=== PATIENT | male | born 1940 | race Caucasian/White ===

== ENCOUNTER 2016-08-10 12:13 | Outpatient (CLI) | payer MEDICARE, OTHER | END 2016-08-10 12:14 | disposition home or self-care (01) | DX: M79.1 Myalgia (principal); R05 Cough ==

== ENCOUNTER 2017-01-23 21:17 | Observation (INO) | payer MEDICARE, OTHER ==
--- NOTE | 2017-01-23 21:39 | ED Physician Documentation ---
PD HPI CHEST PAIN - Stated complaint Stated Complaint: HIGH PULSE RATE/CHEST PRESSURE - Chief complaint Chief Complaint: Cardiac - History obtained from History obtained from: Patient - History of Present Illness Timing - onset: Enter time (01:00), Last night Timing - onset during: Sleep Timing - details: Intermittant Pain level max: 2 Pain level now: 0 Quality: Pressure Location: Other (no radiation) Improved by: Nothing Worsened by: Other (no exacerbating factors) Associated symptoms: Shortness of air Similar symptoms before: No diagnosis Recently seen: Not recently seen - Additional information Additional information: c/o mild chest pressure, intermittent since AM yesterday. mild dyspnea on exertion but no palpitations. because of the BRYSON, patient decided to use BP cuff tonight and found his pulse rate was 140, which concerned him enough to come to ED Review of Systems Constitutional: reports: Reviewed and negative Eyes: reports: Reviewed and negative Ears: reports: Reviewed and negative Nose: reports: Reviewed and negative Throat: reports: Reviewed and negative Cardiac: reports: Chest pain / pressure. denies: Palpitations, Pedal edema Respiratory: reports: Dyspnea (on exertion) GI: reports: Nausea. denies: Abdominal Pain, Vomiting Skin: reports: Reviewed and negative Musculoskeletal: reports: Reviewed and negative Neurologic: reports: Reviewed and negative PD PAST MEDICAL HISTORY - Past Medical History Past Medical History: Yes Cardiovascular: Hypertension, High cholesterol, Coronary artery disease, [place] - Past Surgical History Past Surgical History: Yes Cardiovascular: Coronary stent (2011) - Present Medications Home Medications: Ambulatory Orders Medication Instructions Recorded Confirmed Aspirin 81 mg PO DAILY 01/24/17 01/24/17 Finasteride 5 mg PO DAILY 01/24/17 01/24/17 Lisinopril [Zestril] 5 mg PO DAILY 01/24/17 01/24/17 Metoprolol Tartrate [Lopressor] 50 mg PO BID #60 tablet 01/24/17 Rivaroxaban [Xarelto] 20 mg PO DAILY #30 tablet 01/24/17 Simvastatin 40 mg PO DAILY PM 01/24/17 01/24/17 Tamsulosin [Flomax] 0.4 mg PO DAILY 01/24/17 01/24/17 - Allergies Allergies/Adverse Reactions: Allergies Allergy/AdvReac Type Severity Reaction Status Date / Time No Known Drug Allergies Allergy Verified 01/23/17 21:29 - Living Situation Living Situation: reports: With spouse/s.o. Living Arrangement: reports: At home - Social History Does the pt smoke?: No PD ED PE NORMAL - Vitals Vital signs reviewed: Yes - General General: Alert and oriented X 3, No acute distress, Well developed/nourished - HEENT HEENT: Moist mucous membranes - Neck Neck: Supple, no meningeal sign - Cardiac Cardiac: No murmur - Respiratory Respiratory: No respiratory distress, Clear bilaterally - Abdomen Abdomen: Soft, Non tender - Derm Derm: Normal color, Warm and dry - Extremities Extremities: No edema - Neuro Neuro: Alert and oriented X 3 PD ED PE EXPANDED - Cardiac Cardiac: Tachy Results - Vitals Vitals: Oxygen O2 Source Room air - Labs Labs: Laboratory Tests 01/23/17 01/23/17 01/23/17 21:38 21:38 21:38 WBC 9.7 RBC 4.86 Hgb 15.1 Hct 42.9 MCV 88.4 MCH 31.0 MCHC 35.1 RDW 13.1 Plt Count 213 MPV 7.6 Neut # 5.6 Lymph # 1.6 Hamilton # 2.4 H Eos # 0.1 Baso # 0.0 Absolute Nucleated RBC 0.01 Band Neuts % (Manual) Not Reportable Nucleated RBC % 0.1 Differential Comment MANUAL=AUTO DIFF Platelet Estimate NORMAL (130-450,000) Platelet Morphology NORMAL APPEARANCE RBC Morph Micro Appear NORMAL APPEARANCE Sodium 140 Potassium 3.9 Chloride 104 Carbon Dioxide 27 Anion Gap 9.0 BUN 20 Creatinine 1.1 Estimated GFR (MDRD) 65 L Glucose 100 Calcium 9.5 Troponin I < 0.04 - Rads (name of study) chest xray Radiology: Prelim report reviewed, See rad report PD MEDICAL DECISION MAKING - ED course Complexity details: reviewed results, re-evaluated patient, considered differential, d/w patient ED course: initial EKG interpreted by computer as junctional tachycardia. It is likely atrial flutter with 2:1 block: on initial evaluation, I noted a single skipped ventricular beat on the monitor while I performed cardiac massage, and flutter waves were apparent. unfortunately, I could not get the equipment to print out the strip demonstrating this pause. good rate control with cardizem IV low dose used due to 90s SBP, but atrial fibrillation on monitor and second EKG which persisted during remainder of ED stay. Patient does not feel palpitations, so no clear time of onset to consider electrocardioversion. Departure - Departure Disposition: ED Place in Observation Clinical Impression: Atrial fibrillation Condition: Stable Discharge Date/Time: 01/24/17 01:25
[2017-01-23] MEDS ORDERED: diltiaZEM INJ 5 MG/ML VIAL IVP STA (22:18)
[2017-01-23 22:25] LABS: BASOPHILS % (AUTO) 0.4 %; EOSINOPHILS # (AUTO) 0.1 10^3/uL (0.0-0.7); HCT - HEMATOCRIT 42.9 % (42.0-52.0); HGB - HEMOGLOBIN 15.1 g/dL (14.0-18.0); LYMPHOCYTES # (AUTO) 1.6 10^3/uL (1.5-3.5); LYMPHOCYTES % (AUTO) 16.1 %; MEAN CORPUSCULAR HGB CONC 35.1 g/dL (32.0-36.0); MEAN CORPUSCULAR VOLUME 88.4 fL (80.0-94.0); MEAN PLATELET VOLUME 7.6 fL (7.4-11.4); MONOCYTES # (AUTO) 2.4 10^3/uL (0.0-1.0); MONOCYTES % (AUTO) 24.9 %; NEUTROPHILS # (AUTO) 5.6 10^3/uL (1.5-6.6); NEUTROPHILS % (AUTO) 57.6 %; NUCLEATED RED BLOOD CELLS AUTO 0.1 /100WBC; RED BLOOD COUNT 4.86 10^6/uL (4.70-6.10); RED CELL DISTRIBUTION WIDTH 13.1 % (12.0-15.0); UNCORRECTED WHITE BLOOD COUNT 9.7 x10^3/uL; WHITE BLOOD COUNT 9.7 x10^3/uL (4.8-10.8)
[2017-01-23] MEDS ORDERED: SODIUM CHLORIDE 0.9% 500 ML IV ONE (22:27)
[2017-01-23] MEDS ORDERED: diltiaZEM INJ 5 MG/ML VIAL ONE (22:29)
[2017-01-23 22:30] LABS: CALCIUM 9.5 mg/dL (8.5-10.3); CREATININE 1.1 mg/dL (0.6-1.2); POTASSIUM 3.9 mmol/L (3.5-5.0)
[2017-01-23 23:02] LABS: NP AUTO DIFFERENTIAL? NO; NP MAN DIFFERENTIAL? YES; PLATELET ESTIMATE, MANUAL NORMAL (130-450,000) (NORMAL); PLATELET MORPHOLOGY NORMAL APPEARANCE (NORMAL)
--- NOTE | 2017-01-23 23:22 | XRAY Preliminary Report ---
Exam: XR Chest 2 View PA/LAT IMPRESSION: No definite acute cardiopulmonary abnormality. [facility] SITE ID: [id number]
--- NOTE | 2017-01-23 23:25 | XRAY Report ---
EXAM: CHEST RADIOGRAPHY EXAM DATE: 01/23/2017 11:01 PM. CLINICAL HISTORY: Chest pain. COMPARISON: None. TECHNIQUE: 2 views. FINDINGS: Lungs/Pleura: No focal opacities evident. No pleural effusion. No pneumothorax. Normal volumes. Mediastinum: Heart and mediastinal contours are unremarkable. Other: Multilevel degenerative changes in the spine. Moderate left shoulder degenerative change. IMPRESSION: No definite acute cardiopulmonary abnormality. [facility] Referring Provider Line: [phone] SITE ID: [id number]
[2017-01-24] MEDS ORDERED: ASPIRIN CHEW 81 MG TABLET PO SCH (01:00)
[2017-01-24] MEDS ORDERED: ACETAMINOPHEN 325 MG TABLET PO PRN (01:00)
[2017-01-24] MEDS ORDERED: MORPHINE 2 MG/ML SYRINGE IVP PRN (01:00)
[2017-01-24] MEDS ORDERED: SODIUM CHLORIDE FLUSH 0.9% 10 ML SYRINGE IVP PRN (01:00)
[2017-01-24] MEDS ORDERED: NITROGLYCERIN SL 0.4 MG TABLET SL PRN (01:29)
[2017-01-24] MEDS ORDERED: diphenhydrAMINE 25 MG CAPSULE PO PRN (01:54)
[2017-01-24] MEDS ORDERED: ONDANSETRON 4 MG/2 ML VIAL IVP PRN (01:54)
[2017-01-24] MEDS: FINASTERIDE 5 MG TABLET PO SCH ×2 (02:02→08:34)
--- NOTE | 2017-01-24 02:22 | HISTORY & PHYSICAL EXAMINATION ---
DATE OF ADMISSION: 01/24/2017 CODE STATUS: FULL CODE. PRIMARY CARE PHYSICIAN: Rashida Latham MD. EXAM LIMITATIONS: None. RECORDS REVIEWED: Yes. SOURCE OF INFORMATION: The patient. CHIEF COMPLAINT: Palpitations and chest pain. DOES THE PATIENT HAVE ADVANCED DIRECTIVES: Yes. HISTORY OF PRESENT ILLNESS: The patient is a 77-year-old white male who began experiencing palpitations at 1 a.m. yesterday. He also had chest discomfort. He was positive for nausea. He had no vomiting. He had dizziness. He had no shortness of breath and no diaphoresis. DRUG ALLERGIES: NONE. HOME MEDICATIONS: 1. Tamsulosin 0.4 mg 1 tab p.o. one half hour after a meal. 2. Aspirin 81 mg 1 tab p.o. every day. 3. Finasteride 5 mg 1 tab p.o. every day. 4. Lisinopril 5 mg 1 tab p.o. every day. 5. Simvastatin 40 mg 1 tab p.o. at bedtime. PAST MEDICAL HISTORY: Benign prostatic hypertrophy, hypertension, hyperlipidemia , and coronary artery disease with 2 stent placements. PAST SURGICAL HISTORY: Umbilical hernia repair, bilateral knee surgery, right hip surgery, tonsillectomy, right shoulder surgery, hemorrhoid repair. FAMILY HISTORY: Father had coronary artery disease and alcoholism. SOCIAL HISTORY: He is . He has 3 children. He smoked 2 packs per day for 20 years and quit 30 years ago. He is a retired contractor. He drinks alcohol socially. He uses no recreational drugs. He lives at home with his . REVIEW OF SYSTEMS: RESPIRATORY: No shortness of breath, no coughing. HEART: Palpitations and dull chest pain without radiation. ABDOMEN: Positive for nausea. No vomiting and no abdominal pain. URINARY: No frequency, no burning urine. HEAD: No headaches. EYES: No blurred vision. EARS: No ear pain or tinnitus. NOSE: No runny nose. No pain or redness. MUSCULOSKELETAL: No proximal muscle weakness or back pain. JOINTS: No joint pain. NEUROLOGICAL: No dementia. No limb weakness. Weakness and fatigue is yes and fevers no. PHYSICAL EXAMINATION: VITAL SIGNS: Temperature of 36.4 degrees Celsius, a pulse of 92, a respiratory rate of 17, blood pressure of 92/58, O2 saturation of 98% on room air. GENERAL: He is alert and cooperative. HEENT: His head is atraumatic, normocephalic. Left forehead scar is from a precancerous skin lesion removal. Eyes PERRLA, EOMI. NECK: Supple. No JVD, no bruits, no thyroid enlargement. No adenopathy. HEART: Irregularly irregular. LUNGS: Clear to auscultation. ABDOMEN: Positive for bowel sounds, soft, nontender. No rebound, no guarding. EXTREMITIES: Warm: No edema, +2 pedal pulses. He has 5/5 muscle strength in upper and lower extremities. NEUROLOGIC: He is oriented x3, follows commands, moves all 4 extremities. Cranial nerves 2-12 are intact. LABORATORY DATA: His sodium was 140, potassium is 3.9, chloride is 104, bicarbonate 27, BUN 20, creatinine 1.1, glucose is 100. White blood cells are 9.2, hemoglobin is 15.1, hematocrit is 42.9, platelets are 213,000. Glomerular filtration rate is 65. Troponin is less than 0.04. EKG shows atrial fibrillation. ASSESSMENT AND PLAN: He has new onset atrial fibrillation. He will be on Lovenox 100 mg subcutaneously b.i.d. and diltiazem. He will be on telemetry. He will get an echocardiogram tomorrow. He has been placed in observation for chest pain, rule out NC. He will get troponin levels q.6h. X2. He will be on aspirin, Sl NTG prn chest pain, and IV MS prn chest pain. His hyperlipidemia will be treated with atorvastatin. His HTN will be treated with lisinopril and ditiazem. His benign prostatic hypertrophy will be treated with Flomax and Proscar. He will be on IV Protonix to prevent stress ulcer and he will get a CBC , CMP, and magnesium sulfate in the morning. His DVT prophylaxis will be Lovenox subcutaneously. His anticipated length of stay is less than 48 hours. JOB #: [id number] EXT JOB #:[id number] PARRISH
[2017-01-24] MEDS ORDERED: SODIUM CHLORIDE FLUSH 0.9% 10 ML SYRINGE IVP SCH (06:00)
[2017-01-24 06:04] LABS: BASOPHILS % (AUTO) 0.7 %; EOSINOPHILS # (AUTO) 0.1 10^3/uL (0.0-0.7); EOSINOPHILS % (AUTO) 1.6 %; HCT - HEMATOCRIT 37.7 % (42.0-52.0); HGB - HEMOGLOBIN 13.4 g/dL (14.0-18.0); LYMPHOCYTES # (AUTO) 1.4 10^3/uL (1.5-3.5); LYMPHOCYTES % (AUTO) 22.6 %; MEAN CORPUSCULAR HEMOGLOBIN 31.2 pg (27.0-31.0); MEAN CORPUSCULAR HGB CONC 35.5 g/dL (32.0-36.0); MEAN CORPUSCULAR VOLUME 87.9 fL (80.0-94.0); MEAN PLATELET VOLUME 7.3 fL (7.4-11.4); MONOCYTES # (AUTO) 1.4 10^3/uL (0.0-1.0); MONOCYTES % (AUTO) 22.6 %; NEUTROPHILS # (AUTO) 3.2 10^3/uL (1.5-6.6); NEUTROPHILS % (AUTO) 52.5 %; RED BLOOD COUNT 4.29 10^6/uL (4.70-6.10); RED CELL DISTRIBUTION WIDTH 12.8 % (12.0-15.0); UNCORRECTED WHITE BLOOD COUNT 6.1 x10^3/uL; WHITE BLOOD COUNT 6.1 x10^3/uL (4.8-10.8)
[2017-01-24] MEDS: diltiaZEM 30 MG TABLET PO SCH ×2 (06:09→11:59)
[2017-01-24 06:15] LABS: ALBUMIN/GLOBULIN RATIO 1.5 (1.0-2.2); BILIRUBIN,TOTAL 0.4 mg/dL (0.2-1.0); CALCIUM 8.3 mg/dL (8.5-10.3); CREATININE 0.9 mg/dL (0.6-1.2); POTASSIUM 4.1 mmol/L (3.5-5.0)
[2017-01-24] MEDS ORDERED: PANTOPRAZOLE 40 MG VIAL IVP SCH (07:00)
[2017-01-24] MEDS: CALCIUM CARBONATE CHEW 500 MG TABLET PO SCH ×2 (08:34→09:46)
[2017-01-24] MEDS: ENOXAPARIN 100 MG/ML SYRINGE SUBQ SCH ×2 (08:40→09:46)
[2017-01-24] MEDS ORDERED: LISINOPRIL 5 MG TABLET PO SCH (09:00)
[2017-01-24] MEDS ORDERED: TAMSULOSIN 0.4 MG CAPSULE PO SCH (09:00)
[2017-01-24] MEDS ORDERED: POLYETHYLENE GLYCOL 3350 17 GM PACKET PO SCH (09:00)
--- NOTE | 2017-01-24 11:09 | XRAY Report ---
TWO VIEW CHEST: 01/24/2017 CLINICAL INDICATION: Chest pain. COMPARISON: 01/23/2017. FINDINGS: Frontal and lateral views of the chest demonstrate a normal cardiac silhouette. The lungs remain clear. No effusion or pneumothorax is present. IMPRESSION: NORMAL CHEST, UNCHANGED. JOB #: [id number] EXT JOB #:[id number]
--- NOTE | 2017-01-24 12:03 | Discharge Plan ---
Discharge Plan Disposition: 01 Home, Self Care Condition: Stable Prescriptions: Metoprolol Tartrate [Lopressor] 50 mg PO BID #60 tablet Rivaroxaban [Xarelto] 20 mg PO DAILY #30 tablet Diet: Cardiac Activity Restrictions: No Restrictions Shower Restrictions: No Driving Restrictions: No Additional Instructions or Follow Up instructions: You were admitted because of new onset atrial fibrillation. That is an abnormal heart rhythm that causes your heart to beat irregularly and too fast. Causes can be angina or blocked heart arteries but that test was negative. High thyroid but you don't have that. Drinking too much alcohol, but you don't at 2 beers a day. A large heart chamber called left atrium from valve disease but the ultrasound ECHO of your heart doesn't show that. So we have started you on a medicine to slow down your heart rate below 100 beats a minute (hopefully down to the 70's). We initially chose diltiazem but diltiazem interacts with your simvastatin and we changed you to Lopressor. When someone your age has atrial fibrillation we calculated a score called a CHADs score. That score predicts your risk of stroke with your atrial fibrillation. Your chads score is high enough that you will need treatment with blood thinners to prevent the small clots that form in your heart that then flow out of your heart to cause strokes. Please follow-up with Dr. Jara in the next 1-2 weeks so that she can know you are on these new medicines. We will also ask you to follow-up with your medical front desk coordinator at [facility]. I have spoke to Lelia, who is Dr. Conteh's triage nurse, and she will let him know what we found. They will call you to say when to followup with him. Down the road he may change your medicine and may try to convert you back to a regular rhythm with medicine or a small shock to the heart. No Smoking: If you smoke, Please STOP! Call for help. Follow-up with: Rashida Jara MD [Primary Care Provider] -
[2017-01-24 12:09] VITALS: BP 87/59
--- NOTE | 2017-01-24 16:05 | DISCHARGE SUMMARY ---
DATE OF ADMISSION: 01/24/2017 DATE OF DISCHARGE: 01/24/2017 PRIMARY CARE PROVIDER: Rashida Jara MD. DISCHARGE DIAGNOSES: 1. New onset atrial fibrillation. 2. Nonspecified chest pain. 3. Benign prostatic hypertrophy without lower urinary tract symptoms. 4. Essential hypertension. 5. Hyperlipidemia, unspecified. DISCHARGE MEDICATIONS: 1. Lopressor 50 mg p.o. b.i.d.. 2. Xarelto 20 mg p.o. daily, which are both new. Previous medications at home are to be resumed which are. 1. Aspirin 81 mg a day. 2. Finasteride 5 mg a day. 3. Zestril 5 mg a day. 4. Simvastatin 40 mg a day. 5. Flomax 0.4 mg a day. PRINCIPAL PROCEDURES: 1. Echocardiogram (preliminary report and must be verified with final report) showing left ventricular size normal with mild concentric left ventricular hypertrophy. Systolic function is 60% to 65%. Unable to assess for diastolic wall motion abnormalities. Moderate aortic valve sclerosis without stenosis. Thickening of the mitral valve, no mitral stenosis, mild mitral regurgitation. Left atrium is moderate increase in left atrial volume index. 2. Serial cardiac enzymes, which were negative. 3. Chest x-ray with normal chest, unchanged. 4. TSH 1.62. HOSPITAL COURSE: The patient presented as a new onset mild chest discomfort with atrial fibrillation. Please see Dr. Savanna Cody's history and physical dictated right before this note. He was essentially admitted as atypical discomfort with new onset atrial fibrillation. TSH was normal and serial cardiac enzymes were normal. He did not have electrolyte abnormalities. Echocardiogram showed the above findings. We initially attempted to rate control him with diltiazem. However, diltiazem and interacts with the simvastatin 40 mg at home and is not recommended to give that with simvastatin greater than 10 mg for rhabdomyolysis. As such, medication was changed to Lopressor 50 mg p.o. b.i.d. The patient tolerates his palpitations quite nicely and does not even feel he is having them when he is in the inpatient setting, going as high as 150 to get up to go to the bathroom. When he is at rest, pulse drops below 80. We explained to him that he has a new cardiac arrhythmia, possibly from the dilated left atrium, possibly from an accessory pathway, but right now he is not having an PA, does not have hyperthyroidism, does have significant valvular heart disease. He is discharged in stable condition. He is to followup with his primary care provider, Rashida Jara. He has been started on Lopressor and Xarelto. I have also asked him to followup with his temporary staff accountant, Dr. Conteh who is at [facility], Cardiology. I have spoken to Dr. Wero Rowell' s triage nurse. Her fax number is [phone]. The phone number is [phone]. I would like this patient seen in the next week for followup to discuss what the ongoing plan will be. Time is of the essence in that this gentleman is getting ready to leave to go to [place], but does not want to followup with the temporary staff accountant in [place]. He may need a stress test. He does have a previous history of PA and coronary artery disease with stents placed many years ago, but at this time, having no angina. Nuclear medicine is unavailable at this time for us to do our own stress test. He is discharged in stable condition with a temperature of 37.2, pulse 84, blood pressure 87/59, going up to 97/64, respirations 18, 96% on room air. He is an alert, oriented, pleasant white male who looks his stated age. No acute respiratory distress. He is at ease speaking to me. Jokes about the pronunciation of his temporary staff accountant's name and is a very congenial gentleman. He has no JVD. Lungs are clear. He has an irregular rhythm that is rate controlled when he is lying down. Mildly elevated when he sits up. Abdomen is benign without masses or tenderness. He has normal bowel sounds. Extremities are without clubbing, cyanosis, or edema. He is able to get up and walk to the bathroom and get back into bed with transferring and sitting without any difficulty. The only positive finding on exam because of atrial fibrillation is that he has a Band-Aid on the left mormonism from a biopsy site. Restrictions are none at this time. He asked if he could still continue to walk on his treadmill or just do normal activities. I said hold off on the treadmill until he sees Dr. Conteh, now not so much for risk of his heart, but because his heart rate will go up. JOB #: [id number] EXT JOB #:[id number] PARRISH
[2017-01-24] MEDS ORDERED: ATORVASTATIN 40 MG TABLET PO SCH (21:00)
== END 2017-01-24 12:52 | disposition home or self-care (01) ==
LOC: ED 21:17 → OBS 01-24 01:33
PROVIDERS: ATTEND Specialist
DX: I48.91 Unspecified atrial fibrillation (principal); R07.9 Chest pain, unspecified; I10 Essential (primary) hypertension; I25.10 Atherosclerotic heart disease of native coronary artery without angina pectoris; E78.5 Hyperlipidemia, unspecified; N40.0 Benign prostatic hyperplasia without lower urinary tract symptoms; Z79.82 Long term (current) use of aspirin; Z79.899 Other long term (current) drug therapy; Z95.5 Presence of coronary angioplasty implant and graft; Z87.891 Personal history of nicotine dependence
CPT/HCPCS: 36415; 71020; 80048; 80053; 83735; 84443; 84484; 85025; 93005; 93306; 96361; 96372; 96374; 96375; 99285; A9270; G0378; J1650

== ENCOUNTER 2018-03-02 20:14 | Emergency (ER) | payer MEDICARE, OTHER ==
[2018-03-02 20:43] LABS: BASOPHILS % (AUTO) 0.3 %; EOSINOPHILS # (AUTO) 0.3 10^3/uL (0.0-0.7); EOSINOPHILS % (AUTO) 5.3 %; LYMPHOCYTES # (AUTO) 1.4 10^3/uL (1.5-3.5); LYMPHOCYTES % (AUTO) 24.3 %; MEAN CORPUSCULAR HEMOGLOBIN 30.1 pg (27.0-31.0); MEAN CORPUSCULAR HGB CONC 34.4 g/dL (32.0-36.0); MEAN CORPUSCULAR VOLUME 87.4 fL (80.0-94.0); MEAN PLATELET VOLUME 7.4 fL (7.4-11.4); MONOCYTES # (AUTO) 1.4 10^3/uL (0.0-1.0); MONOCYTES % (AUTO) 24.2 %; NEUTROPHILS # (AUTO) 2.6 10^3/uL (1.5-6.6); NEUTROPHILS % (AUTO) 45.9 %; PLT - PLATELET COUNT 161 10^3/uL (130-450); RED BLOOD COUNT 4.64 10^6/uL (4.70-6.10); WHITE BLOOD COUNT 5.6 x10^3/uL (4.8-10.8)
--- NOTE | 2018-03-02 20:43 | ED Physician Documentation ---
History of Present Illness - Stated complaint Stated Complaint: CHEST PX - Chief complaint Chief Complaint: Cardiac - History obtained from History obtained from: Patient - History of Present Illness Timing: Enter time (17:30), Today Pain level max: 0 Pain level now: 0 (patient tells me he has no pain (triage note indicates 05/28)) Improved by: no ameliorating factors Worsened by: no exacerbating factors Associated symptoms: palpitations - Additonal information Additional information: sudden onset rapid palpitations 5:30 PM today while at rest at home. Similar to previous episodes of ARNOLD. Not on any rate-control medications; he had been on metoprolol, but was taken off due to bradycardia (taken off months ago) Review of Systems Constitutional: denies: Fever, Chills, Sweats Cardiac: reports: Palpitations. denies: Chest pain / pressure, Pedal edema Respiratory: denies: Dyspnea, Cough GI: reports: Reviewed and negative Musculoskeletal: reports: Reviewed and negative PD PAST MEDICAL HISTORY - Past Medical History Past Medical History: Yes Cardiovascular: Hypertension, High cholesterol, Coronary artery disease, [place], Atrial fibrillation Endocrine/Autoimmune: None GI: None : Benign prostate hypertrophy HEENT: Chronic hearing loss Psych: None Musculoskeletal: Osteoarthritis, Chronic back pain Derm: Other - Past Surgical History Past Surgical History: Yes Ortho: Hip replacement, Knee replacement, Shoulder arthroplasty Cardiovascular: Coronary stent Derm: Skin cancer surgery - Present Medications Home Medications: Ambulatory Orders Medication Instructions Recorded Confirmed Aspirin 81 mg PO DAILY 01/24/17 03/02/18 Finasteride 5 mg PO DAILY 01/24/17 03/02/18 Lisinopril [Zestril] 5 mg PO DAILY 01/24/17 03/02/18 Metoprolol Tartrate [Lopressor] 50 mg PO BID #60 tablet 01/24/17 03/02/18 Rivaroxaban [Xarelto] 20 mg PO DAILY #30 tablet 01/24/17 03/02/18 Simvastatin 40 mg PO DAILY PM 01/24/17 03/02/18 Tamsulosin [Flomax] 0.4 mg PO DAILY 01/24/17 03/02/18 - Allergies Allergies/Adverse Reactions: Allergies Allergy/AdvReac Type Severity Reaction Status Date / Time No Known Drug Allergies Allergy Verified 03/02/18 20:25 - Social History Does the pt smoke?: No Smoking Status: Never smoker Does the pt drink ETOH?: Yes Does the pt have substance abuse?: No - Immunizations Immunizations: TDAP >10years/unknown - POLST Patient has POLST: No PD ED PE NORMAL - Vitals Vital signs reviewed: Yes - General General: Alert and oriented X 3, No acute distress, Well developed/nourished - Cardiac Cardiac: No murmur - Respiratory Respiratory: No respiratory distress, Clear bilaterally - Abdomen Abdomen: Soft, Non tender - Derm Derm: Normal color, Warm and dry - Extremities Extremities: No edema - Neuro Neuro: Alert and oriented X 3 PD ED PE EXPANDED - Cardiac Cardiac: Tachy, Irregularly irregular Results - Vitals Vitals: Vital Signs - 24 hr 03/02/18 03/02/18 03/02/18 20:20 20:25 20:51 Temperature 36.4 C L Heart Rate 153 H 136 H Respiratory 16 16 Rate Blood Pressure 113/77 123/70 Blood Pressure 123/70 [Left] Blood Pressure 126/114 H [Right] O2 Saturation 96 94 03/02/18 03/02/18 03/02/18 20:56 21:02 21:07 Temperature Heart Rate 110 H 108 H 104 H Respiratory 17 14 17 Rate Blood Pressure 96/59 L 94/65 94/61 Blood Pressure [Left] Blood Pressure [Right] O2 Saturation 91 L 94 96 03/02/18 03/02/18 03/02/18 21:17 21:33 21:56 Temperature Heart Rate 90 105 H 102 H Respiratory 17 16 16 Rate Blood Pressure 93/62 99/67 99/67 Blood Pressure [Left] Blood Pressure [Right] O2 Saturation 95 96 98 03/02/18 03/02/18 03/02/18 22:45 22:48 22:55 Temperature Heart Rate 103 H 103 H 103 H Respiratory 17 12 17 Rate Blood Pressure 102/57 L 102/71 102/57 L Blood Pressure [Left] Blood Pressure [Right] O2 Saturation 94 97 94 03/02/18 03/02/18 03/02/18 22:57 23:00 23:02 Temperature Heart Rate 69 70 70 Respiratory 15 17 14 Rate Blood Pressure 98/66 91/62 Blood Pressure [Left] Blood Pressure [Right] O2 Saturation 66 L 94 03/02/18 03/02/18 03/02/18 23:09 23:15 23:19 Temperature Heart Rate 67 63 64 Respiratory 15 14 14 Rate Blood Pressure 93/63 95/69 95/69 Blood Pressure [Left] Blood Pressure [Right] O2 Saturation 95 97 94 03/02/18 03/02/18 03/03/18 23:32 23:59 00:20 Temperature 36.5 C Heart Rate 64 62 66 Respiratory 12 16 16 Rate Blood Pressure 91/64 94/63 99/65 Blood Pressure [Left] Blood Pressure [Right] O2 Saturation 94 95 98 Oxygen O2 Source Room air Oxygen Flow Rate 2 - EKG (time done) No standard instances Rate: Rate (enter#) (158), Tachy Rhythm: Atrial fibrillation [place]: LAD QRS: Normal Ischemia: Non specific changes - Labs Labs: Laboratory Tests 03/02/18 03/02/18 03/02/18 20:30 20:30 20:30 WBC 5.6 RBC 4.64 L Hgb 14.0 Hct 40.6 L MCV 87.4 MCH 30.1 MCHC 34.4 RDW 14.0 Plt Count 161 MPV 7.4 Neut # (Auto) 2.6 Lymph # (Auto) 1.4 L Darke # (Auto) 1.4 H Eos # (Auto) 0.3 Baso # (Auto) 0.0 Absolute Nucleated RBC 0.00 Nucleated RBC % 0.1 Sodium 138 Potassium 3.5 Chloride 102 Carbon Dioxide 28 Anion Gap 8.0 BUN 19 Creatinine 0.9 Estimated GFR (MDRD) 81 L Glucose 155 H Calcium 9.2 Troponin I < 0.04 - Rads (name of study) chest xray Radiology: Prelim report reviewed, See rad report Procedures - Procedural sedation Sedation prep: Informed consent, Time out completed, Last meal, PE performed, AHA 2 - mild disease, IV O2 monitor, ET CO2 monitor, RT present Sedation medications: fentanyl, propofol, given by RN (fentanyl), given by MD (propofol) Patient status during sedation: Responds to tactile, Vitals remained stable, Maintained airway, Recovered uneventfully Sedation recovery: Recovered uneventfully - Cardioversion Attempt 1 Indication: Tachyarrhythmia Risks, benefits, alternatives explained to: Pt Prep: IV, O2, court recording monitor, Pulse ox, Airway equip Meds: Fentanyl, Propofol CS via: Pads, Anterolateral Sync: Biphasic, 200j (synchronized) Post cardioversion rhythm: NSR Complications: No: Contact burn, Apnea, Hypotension Performed by: ED MD MEDICAL DECISION MAKING - ED course Complexity details: reviewed old records, reviewed results, re-evaluated patient, considered differential, d/w patient ED course: Given 15mg IV cardizem for rapid atrial fibrillation, and this resulted in good rate control (90s bpm) but remained in atrial fibrillation. His SBP dropped to mid-80s, responded adequately and quickly to IV fluid bolus, increasing to mid- 90s SBP. patient was asymptomatic after IV cardizem was given. His heart rate showed brief increases to 100s-110s, raising the concern that, without rate- control medication, his rapid atrial fibrillation is likely to recur. This is weighed against the drop in his BP, with similar problems in the past leading to discontinuation of his beta-rhianna. D/W Dr. Baxter (raise drill operator covering for Dr. Talley); as patient is on Xarelto, he recommends electrocardioversion. If patient declines, or if unsuccessful, can consider diltiazem CD 120mg PO QD. I discussed these options with the patient, and he is agreeable to cardioversion. As documented above, cardioversion was successful on first attempt (200J), NSR with SBP 100s. He maintained NSR (heart rate 60s-70s) during remainder of his stay, remained asymptomatic and normotensive. Departure - Departure Disposition: 01 Home, Self Care Clinical Impression: Atrial fibrillation Condition: Good Instructions: ED Afib, ED Paroxysmal Atrial Flutter Comments: Follow up with your raise drill operator: call in the morning to arrange for next available appointment Discharge Date/Time: 03/03/18 00:25
[2018-03-02] MEDS ORDERED: diltiaZEM INJ 5 MG/ML VIAL IVP STA (20:44)
[2018-03-02 20:55] LABS: CALCIUM 9.2 mg/dL (8.5-10.3); CREATININE 0.9 mg/dL (0.6-1.2)
[2018-03-02] MEDS ORDERED: SODIUM CHLORIDE 0.9% 1,000 ML IV ONE (20:56)
--- NOTE | 2018-03-02 21:11 | XRAY Report ---
Reason: rapid HR= cardiac Procedure Date: 03/02/2018 Accession Number: [id number] / [id number] Procedure: XR - Chest 1 View X-Ray CPT Code: 54775 FULL RESULT: EXAM: CHEST RADIOGRAPHY EXAM DATE: 03/02/2018 08:38 PM. CLINICAL HISTORY: Rapid HR= cardiac. COMPARISON: 01/24/2017. TECHNIQUE: 1 view. FINDINGS: Lungs/Pleura: No localized infiltrate, consolidation, effusion, or pneumothorax. Mediastinum: Within exam limitations, the cardiomediastinal contour is normal. Upper lobe vessels not distended. Other: Degenerative changes. IMPRESSION: No acute disease. RADIA
[2018-03-02] MEDS ORDERED: PROPOFOL 200 MG/20 ML VIAL IVP STA (22:28)
[2018-03-02] MEDS ORDERED: fentaNYL 100 MCG/2 ML VIAL IVP STA (22:28)
[2018-03-03] MEDS ORDERED: SODIUM CHLORIDE 0.9% 1,000 ML IV ONE ×2 (00:05→21:45)
[2018-03-03 00:44] VITALS: BP 99/65
== END 2018-03-03 00:25 | disposition home or self-care (01) ==
LOC: ED 20:14
DX: I48.91 Unspecified atrial fibrillation (principal); I10 Essential (primary) hypertension; E78.00 Pure hypercholesterolemia, unspecified; I25.10 Atherosclerotic heart disease of native coronary artery without angina pectoris; I25.2 Old myocardial infarction; Z95.5 Presence of coronary angioplasty implant and graft; Z96.649 Presence of unspecified artificial hip joint; Z96.659 Presence of unspecified artificial knee joint; Z79.82 Long term (current) use of aspirin
CPT/HCPCS: 36415; 71045; 80048; 80053; 83690; 84484; 85025; 85610; 85730; 92960; 93005; 94770; 96361; 96374; 96375; 99284; 99285

== ENCOUNTER 2018-11-24 18:08 | Emergency (ER) | payer MEDICARE, OTHER ==
--- NOTE | 2018-11-24 18:57 | ED Physician Documentation ---
PD HPI CHEST PAIN - Stated complaint Stated Complaint: IRREG HB/SOA/DIZZY - Chief complaint Chief Complaint: Cardiac - History obtained from History obtained from: Patient - History of Present Illness Timing - onset: How many days ago (3) Timing - onset during: Rest Timing - duration: Days (3) Timing - details: Still present Pain level now: 0 Quality: No: Pressure Associated symptoms: Shortness of air, Nausea, Feeling faint / dizzy, Palpitations. No: Diaphoresis, Vomiting Similar symptoms before: Diagnosis (a fib) Recently seen: Not recently seen - Additional information Additional information: This is a 78-year-old man who has a long-standing history of atrial fibrillation is on Xarelto and presents with complaints that he is having a "arrhythmia" for the past 3 days. He was on metoprolol up until recently when they had to discontinue it because of his developing bradycardia. Yesterday when he remembered that he had some leftover metoprolol that they told him to keep in case of an emergency he took 1 tablet of it and took another about an hour later it did not seem to impact the arrhythmia at all so he took a pro-path unknown. He was in contact today with the senior user experience architect and took another metoprolol this morning but his heart rate was up as high as 148 at home and running consistently in the 120s so he decided he should come in and have it evaluated. He does feel mildly dizzy when he stands and is mildly short of breath but denies any chest pain. No nausea or vomiting. No peripheral edema no history of DVT. He has noted a bruise on his left leg that he relates to the Xarelto. Denies dysuria. He is not diabetic. No sore throat or stuffy nose. Review of Systems Constitutional: denies: Fever Eyes: denies: Decreased vision Ears: denies: Ear pain Nose: denies: Rhinorrhea / runny nose, Congestion Throat: denies: Sore throat Cardiac: reports: Palpitations. denies: Chest pain / pressure Respiratory: reports: Dyspnea. denies: Cough GI: denies: Abdominal Pain, Nausea, Vomiting : denies: Dysuria Neurologic: denies: Generalized weakness, Head injury Endocrine: reports: Other (He is not diabetic.) PD PAST MEDICAL HISTORY - Past Medical History Cardiovascular: Hypertension, High cholesterol, Coronary artery disease, [place], Atrial fibrillation Endocrine/Autoimmune: None GI: None : Benign prostate hypertrophy HEENT: Chronic hearing loss Psych: None Musculoskeletal: Osteoarthritis, Chronic back pain Derm: Other - Past Surgical History Past Surgical History: Yes Ortho: Hip replacement, Knee replacement, Shoulder arthroplasty Cardiovascular: Coronary stent Derm: Skin cancer surgery - Present Medications Home Medications: Ambulatory Orders Medication Instructions Recorded Confirmed Aspirin 81 mg PO DAILY 01/24/17 03/02/18 Finasteride 5 mg PO DAILY 01/24/17 03/02/18 Rivaroxaban [Xarelto] 20 mg PO DAILY #30 tablet 01/24/17 03/02/18 Simvastatin 40 mg PO DAILY PM 01/24/17 03/02/18 Tamsulosin [Flomax] 0.4 mg PO DAILY 01/24/17 03/02/18 Metoprolol Tartrate [Lopressor] 50 mg PO PRN PRN 11/24/18 Propafenone HCl 300 mg PO PRN PRN 11/24/18 11/24/18 dilTIAZem HCl [Diltiazem ER] 180 mg PO DAILY #30 cap.er.deg 11/24/18 - Allergies Allergies/Adverse Reactions: Allergies Allergy/AdvReac Type Severity Reaction Status Date / Time No Known Drug Allergies Allergy Verified 11/24/18 18:24 - Social History Does the pt smoke?: No Smoking Status: Never smoker Does the pt drink ETOH?: Yes Does the pt have substance abuse?: No - Immunizations Immunizations: TDAP >10years/unknown - POLST Patient has POLST: No PD ED PE NORMAL - Vitals Vital signs reviewed: Yes - General General: Alert and oriented X 3, No acute distress, Well developed/nourished - HEENT HEENT: Atraumatic, PERRL, Moist mucous membranes, Pharynx benign - Neck Neck: Supple, no meningeal sign, Thyroid normal, No JVD - Cardiac Cardiac: No murmur, Strong equal pulses, Other (Tachycardic) - Respiratory Respiratory: No respiratory distress, Clear bilaterally - Abdomen Abdomen: Normal bowel sounds, Soft, Non tender, No organomegaly - Derm Derm: Normal color, No rash - Extremities Extremities: No deformity, No edema - Neuro Neuro: Alert and oriented X 3, Other (No obvious neurological deficit) Results - Vitals Vitals: Vital Signs - 24 hr 11/24/18 11/24/1811/24/19 18:21 18:54 19:00 Temperature 36.0 C L Heart Rate 125 H 125 H 126 H Respiratory 16 20 13 Rate Blood Pressure 90/65 115/83 H 116/93 H O2 Saturation 95 97 98 11/24/18 11/24/18 11/24/18 19:30 19:35 19:45 Temperature Heart Rate 107 H 88 85 Respiratory 16 19 17 Rate Blood Pressure 116/93 H 93/61 97/63 O2 Saturation 98 96 97 11/24/18 11/24/18 11/24/18 20:00 20:15 21:00 Temperature Heart Rate 87 87 106 H Respiratory 23 15 18 Rate Blood Pressure 99/71 111/71 117/71 O2 Saturation 98 96 98 11/24/18 21:30 Temperature Heart Rate 108 H Respiratory 16 Rate Blood Pressure 113/77 O2 Saturation 99 Oxygen O2 Source Room air - EKG (time done) 1822 Rate: Rate (enter#) (125) Rhythm: Atrial fibrillation QRS: Normal Ischemia: Normal ST segments Compare to prior EKG: Old EKG unavailable Computer interpretation: Disagree with computer - Labs Labs: Laboratory Tests 11/24/18 11/24/18 11/24/18 19:09 19:09 19:09 WBC 8.8 RBC 4.08 L Hgb 12.6 L Hct 37.3 L MCV 91.4 MCH 30.9 MCHC 33.8 RDW 13.4 Plt Count 209 MPV 9.5 Neut # (Auto) Not Reportable Lymph # (Auto) Not Reportable Harvey # (Auto) Not Reportable Eos # (Auto) Not Reportable Baso # (Auto) Not Reportable Absolute Nucleated RBC Not Reportable Total Counted 100 Band Neuts % (Manual) 3 Reactive Lymphs % (Man) 1 Abnorm Lymph % (Manual) 0 Nucleated RBC % Not Reportable Neutrophils # (Manual) 5.0 Lymphocytes # (Manual) 2.6 Monocytes # (Manual) 1.0 Eosinophils # (Manual) 0.2 Basophils # (Manual) 0.0 Differential Comment MANUAL DIFFERENTIAL Platelet Estimate NORMAL (130-450,000) Platelet Morphology NORMAL APPEARANCE RBC Morph Micro Appear NORMAL APPEARANCE Sodium 142 Potassium 4.3 Chloride 107 Carbon Dioxide 23 Anion Gap 12.0 BUN 23 H Creatinine 0.9 Estimated GFR (MDRD) 81 L Glucose 98 Calcium 9.2 Total Bilirubin 0.6 AST 20 ALT 20 Alkaline Phosphatase 63 Troponin I High Sens 10.0 Total Protein 6.9 Albumin 4.2 Globulin 2.7 Albumin/Globulin Ratio 1.6 Lipase 27 - Rads (name of study) cxr Radiology: EMP read indepedently (Neg acute infiltrate), EMP read contemporaneously PD MEDICAL DECISION MAKING - ED course Complexity details: reviewed results, re-evaluated patient, d/w patient, d/w family, d/w information resource consultant ED course: Labs were normal with a normal high-sensitivity troponin. EKG did show A. fib with rapid ventricular response and he was given 10 mg of Cardizem IV. Heart rate subsequently came down into the 80s. Blood pressure remained in the 100 systolic but he was not having any symptoms and was able to get up and ambulate without dizziness. I discussed with Dr. Gayle, Hand Stoner And he requested that I placed patient on diltiazem 180 mg extended release daily. Have him stop his lisinopril and losartan and follow-up with his senior user experience architect next week.Blood pressure Patient will be given precautions to hold the diltiazem as his heart rate is below 60 or below 100. He was given a dose of diltiazem extended release prior to discharge however his blood per his heart rate was creeping back up into the 120s and I elected to give him another dose of Cardizem 5 mg IV. Departure - Departure Disposition: 01 Home, Self Care Clinical Impression: Atrial fibrillation Qualifiers: Atrial fibrillation type: paroxysmal Qualified Code(s): I48.0 - Paroxysmal atrial fibrillation Condition: Good Instructions: ED Afib Follow-Up: Rashida Jara MD [Primary Care Provider] - Carl Talley MD [Physician No Access] - Prescriptions: dilTIAZem HCl [Diltiazem ER] 180 mg PO DAILY #30 cap.er.deg Comments: Stop the losartan that you are taking. Start taking the diltiazem daily. Do not take the diltiazem if your heart rate is less than 60 or your blood pressure is less than 100. Contact your senior user experience architect on Tuesday for a follow-up appointment this week. Return if you have chest pain, you are dizzy or increasing shortness of breath or other problems arise.
--- NOTE | 2018-11-24 18:59 | XRAY Report ---
Reason: palpitations Procedure Date: 11/24/2018 Accession Number: [id number] / [id number] Procedure: XR - Chest 1 View X-Ray CPT Code: 57874 FULL RESULT: EXAM: CHEST RADIOGRAPHY EXAM DATE: 11/24/2018 06:36 PM. CLINICAL HISTORY: Palpitations. COMPARISON: CHEST 1 VIEW 03/02/2018 8:38 PM. TECHNIQUE: 1 view. FINDINGS: Lungs/Pleura: No focal opacities evident. No pleural effusion. No pneumothorax. Mediastinum: Within exam limitations, the cardiomediastinal contour is normal. Other: None. IMPRESSION: Normal single view chest. RADIA
[2018-11-24] MEDS ORDERED: diltiaZEM INJ 5 MG/ML VIAL IVP STA ×2 (19:12→22:27)
[2018-11-24] MEDS ORDERED: SODIUM CHLORIDE 0.9% 1,000 ML IV ONE (19:12)
[2018-11-24 19:25] LABS: BASOPHILS % (AUTO) 0.1 %; EOSINOPHILS % (AUTO) 1.9 %; HGB - HEMOGLOBIN 12.6 g/dL (14.0-18.0); LYMPHOCYTES % (AUTO) 15.6 %; MEAN CORPUSCULAR HEMOGLOBIN 30.9 pg (27.0-31.0); MEAN CORPUSCULAR HGB CONC 33.8 g/dL (32.0-36.0); MEAN CORPUSCULAR VOLUME 91.4 fL (80.0-94.0); MEAN PLATELET VOLUME 9.5 fL (7.4-11.4); MONOCYTES % (AUTO) 29.6 %; NEUTROPHILS % (AUTO) 47.9 %; PLT - PLATELET COUNT 209 10^3/uL (130-450); RED BLOOD COUNT 4.08 10^6/uL (4.70-6.10); RED CELL DISTRIBUTION WIDTH 13.4 % (12.0-15.0); WHITE BLOOD COUNT 8.8 x10^3/uL (4.8-10.8)
[2018-11-24 19:28] LABS: ABNORMAL LYMPHS % (MANUAL) 0 %
[2018-11-24 19:43] LABS: ALBUMIN 4.2 g/dL (3.2-5.5); ALBUMIN/GLOBULIN RATIO 1.6 (1.0-2.2); BILIRUBIN,TOTAL 0.6 mg/dL (0.2-1.0); CALCIUM 9.2 mg/dL (8.5-10.3); CREATININE 0.9 mg/dL (0.6-1.2); TOTAL PROTEIN 6.9 g/dL (6.7-8.2)
[2018-11-24 20:00] LABS: BAND NEUTROPHILS % (MANUAL) 3 %; DIFFERENTIAL COMMENT MANUAL DIFFERENTIAL; EOSINOPHILS # (MANUAL) 0.2 10^3/uL (0-0.7); LYMPHOCYTES # (MANUAL) 2.6 10^3/uL (1.5-3.5); LYMPHOCYTES % (MANUAL) 29 %; PLATELET ESTIMATE, MANUAL NORMAL (130-450,000) (NORMAL); PLATELET MORPHOLOGY NORMAL APPEARANCE (NORMAL); RBC MORPHOLOGY (MULTIPLE) NORMAL APPEARANCE (NORMAL)
[2018-11-24] MEDS: diltiaZEM CD 120 MG CAPSULE PO STA ×2 (21:17→21:25)
[2018-11-24] MEDS ORDERED: diltiaZEM CD 180 MG CAPSULE PO ONE (21:23)
[2018-11-24 23:57] VITALS: BP 113/84
== END 2018-11-25 | disposition home or self-care (01) ==
LOC: ED 18:08
DX: I48.0 Paroxysmal atrial fibrillation (principal); I10 Essential (primary) hypertension; Z79.01 Long term (current) use of anticoagulants; Z79.82 Long term (current) use of aspirin
CPT/HCPCS: 36415; 71045; 80053; 83690; 84484; 85025; 93005; 96374; 96376; 99284; A9270

== ENCOUNTER 2020-09-09 10:44 | Outpatient (CLI) | payer MEDICARE ==
[2020-09-09 11:26] VITALS: BP 122/72
--- NOTE | 2020-09-09 11:26 | SLEEP CARE CONSULTATION ---
Information from patient questionnaire entered by Jo Dean. I have reviewed and concur with the information entered by Jo Dean. This document represents the service I personally performed and the decisions made by me, Hope Strauss ARNP. History of Present Illness Service Date and Time: 09/09/2020 1044 Reason for Visit: New patient Chief Complaint: reports: Unrefreshed sleep, Snoring, Excessive daytime sleepiness, Observed pauses in breathing, Frequent awakenings at night. denies: Insomnia, Fatigue Date of Onset: 5 years plus Usual bedtime: 11 pm Time it takes to fall asleep: not long Snores at night: Yes Observed to quit breathing while asleep: Yes Sleeps alone due to snoring: No Number of times waking at night: 5 Reasons for waking at night: reports: Bathroom, Other (unknown reason). denies: Choking, Snoring, Gasping for air Toss, Turn, or Twitch while sleeping: Yes Recalls having dreams: No (seldom) Usually gets out of bed at: 7:30 am Feels refreshed in the morning: No Morning headache: No Sleepy or fatigued during the day: Yes Ever fallen asleep while driving: No Takes day naps: Yes (1-2 naps of day on average) Dreams during day naps: No (seldom) Prior sleep studies: No Additional HPI information: I had the pleasure of seeing RONA RODRIGES today regarding the possibility of him having a sleep disorder. His current complaints are excessive daytime sleepiness, observed pauses in breathing, snoring and unrefreshed sleep. He has been sleeping in a recliner for the last 7 years due to back issues. His family have told him that he snores loudly and stops breathing while sleeping. They have encouraged him to come in. He has friends that have told him about sleep apnea. He is here to get checked for sleep apnea. - Parasomnia Symptoms Ever been unable to move upon waking from sleep: No Walks in sleep: No Talks in sleep: Yes Ever acted out dreams in sleep: No Ever felt weak in the knees when startled or emotional: No Bothered by creepy, crawly, restless sensations in legs: Yes (during day, when awake; some jerks in legs when watching TV; leg cramps hx) Problems with memory or concentration: Yes (both) Subjective Initial [place] Sleepiness Scale score: 18 (in 2020) Past Medical History Past Medical History: reports: Arthritis, Coronary Heart Disease, Arrythmia Social History The patient's occupation is a Retired. Patient is and lives in [place]. Have you smoked in the past 12 months: No Cigarettes per day (20/pack): 30 Years of smokin Quit date: 1989 Smoking Pack Years: 37.5 Alcohol use: Yes Alcohol amount and frequency: 1-2 drinks most days Caffeine use: No Caffeine amount and frequency: switched to decaf couple months ago Family History Family history of sleep disordered breathing: Yes (son) Family Hx Sleep Apnea: Other: Snoring, Sleep apnea - Treated Allergies and Home Medications Drug allergies reviewed: Yes (NKDA) Home medication list reviewed: Yes Allergy and home medication list: aspirin 81 mg daily Diltiazem 120 mg daily Finasteride 5 mg daily Rivaroxaban 20 mg daily Simvastatin 40 mg nightly Tasulosin 0.4 mg daily Review of Systems Cardiovascular: reports: high blood pressure, irregular heart rate or pulse, have to sleep sitting up, other (A-Fib) Respiratory: reports: shortness of breath, chronic cough Gastrointestinal: denies: heartburn Neurological: reports: gait or balance problems. denies: headaches Psychiatric: denies: anxiety, depression, mood disorder Ear/Nose/Throat: reports: hoarseness Endocrine: reports: sluggishness. denies: thyroid disease Musculoskeletal: reports: joint pain, back pain, muscle pain or cramping Immunologic: reports: itching Physical Exam Blood Pressure: 122/72 Cuff size: long Heart Rate: 66 O2 Saturation: 97 Height: 6 ft 2 in Weight: 235 lb Body Mass Index: 30.2 BMI Classification: Obese Neck circumference: 15.75 (inches) Mouth and throat: narrow oropharynx Soft palate: long Hard palate: normal Uvula: normal Uvula visualization: 50% Mallampati Class II Tongue: enlarged in size with teeth jones on lateral edges Tonsils: absent bilaterally Chin and jaw: normal size and position Neck: normal w/o lymphadenopathy or thyromegaly Heart: regular rate and rhythm Lungs: clear bilaterally Impression and Plan 1. Suspected Obstructive Sleep Apnea-Hypopnea Syndrome, as suggested by a h istory of loud and irregular snoring, observed cessation of breath while asleep, frequent awakening during the night, unrefreshed sleep, cognitive impairment, and excessive daytime sleepiness. Narrow oropharynx and obesity are common predisposing factors for obstructive sleep apnea-hypopnea syndrome. I recommend proceeding to polysomnography to confirm the diagnosis and to assess severity. If the patient has significant sleep disordered breathing, a manual CPAP titration study will also be performed to find the optimal treatment pressure. I informed the patient of what the sleep studies involve and after some discussion, obtained agreement to proceed. The pathophysiology of obstructive sleep apnea-hypopnea syndrome was discussed with the patient and health risks of cardiovascular and cerebrovascular disease if not treated. AAS brochure for obstructive sleep apnea-hypopnea syndrome given and reviewed. Risks of drowsy driving discussed in detail and patient advised to avoid long distance driving and to basting puller at the first sign of drowsiness. Patient agreed to plan. * Schedule polysomnography +- manual CPAP titration study and return in 1-2 weeks after the study to discuss result and initiate therapy. * Avoid long distance driving or driving when feeling sleepy. * Avoid alcohol, sedative and muscle relaxant around bedtime. * Attempt to lose weight. * Review instructions provided by trained office staff on how to prepare for the sleep study. * Return for follow-up after sleep study completed. Counseling Topics: Weight loss health impact Visit Type: In Office Time Spent with Patient (minutes): 36 Provider Statement: I spent 100% of the Face to Face Visit with the patient with greater than 50% spent counseling the patient and coordination of care.
== END 2020-09-09 10:45 | disposition home or self-care (01) ==
LOC: SC 10:44
PROVIDERS: ATTEND Nurse Practitioner Family
DX: G47.10 Hypersomnia, unspecified (principal); R06.81 Apnea, not elsewhere classified; G47.8 Other sleep disorders; R41.89 Other symptoms and signs involving cognitive functions and awareness; R06.83 Snoring; Z87.891 Personal history of nicotine dependence; E66.9 Obesity, unspecified; Z68.30 Body mass index [BMI] 30.0-30.9, adult
CPT/HCPCS: 99203; G0463; 99212

== ENCOUNTER 2020-10-16 20:36 | Outpatient (CLI) | payer MEDICARE | END 2020-10-16 20:37 | disposition home or self-care (01) | LOC: SC 20:36 | PROVIDERS: ATTEND Nurse Practitioner Family | DX: G47.33 Obstructive sleep apnea (adult) (pediatric) (principal); E66.9 Obesity, unspecified; Z68.30 Body mass index [BMI] 30.0-30.9, adult | CPT/HCPCS: 95810 ==

== ENCOUNTER 2020-10-23 14:02 | Outpatient (CLI) | payer MEDICARE ==
--- NOTE | 2020-10-23 14:39 | SLEEP CARE CONSULTATION ---
Information from patient questionnaire entered by Jo Dean. I have reviewed and concur with the information entered by Jo Dean. This document represents the service I personally performed and the decisions made by , Hope Strauss ARNP. History of Present Illness Service Date and Time: 10/23/2020 1402 Initial [place] Sleepiness Scale score: 18 (in 2020) Current [place] Sleepiness Scale score: 20 Additional HPI information: RONA RODRIGES returns for follow up and results of the recently performed polysomnography. Patient was found to have very severe obstructive sleep apnea with an average AHI of 64.4 and tomasz oxygen saturation of 60%. I explained the pathophysiology behind obstructive sleep apnea. We then spent quite a bit of time discussing different treatment options. For mild obstructive sleep apnea, surgery and oral appliance are alternatives to nasal CPAP therapy but in moderate or severe cases, nasal CPAP is the most effective and reliable treatment. Because apnea is primarily in supine position, then positional management therapy could be effective. Methods discussed such as positioning with pillows, using a T-shirt with tennis balls in the back, and shown commercial products that have a pillow format on back to prevent supine sleep. I reviewed the impact of weight changes on sleep apnea and strongly recommended losing weight. After some discussion, the patient opted to go with the nasal CPAP therapy. Nasal autoCPAP set at 4-15 cmH20 will be ordered with rationale explained. A manual titration study will be ordered if unable to find optimal pressure with office adjustments. I explained how CPAP machine works with sample devices Respironics Dreamstation and ResMed [id number] and what to expect when using the machine. Using CPAP every night in order to get used to it was emphasized. Patient advised to put CPAP mask on before getting into bed so as not to fall asleep without CPAP. To assist acclimation to CPAP use, it could also be used for a short time during day while reading or watching TV. The patient was instructed to call the CPAP supplier to discuss any mechanical problem that may occur. If the mask given is uncomfortable or is difficult to keep on through the night even with adjustment, contact the CPAP supplier as many will replace with another mask style if notified before 30 days. If snoring or perceives is not getting enough air or too much air from the machine, notify this office. AASM patient education PAP tips reviewed and given to patient. Patient counseled not drink alcohol less than 4 hours before bedtime as it can increase snoring and apnea. Patient was cautioned about risks of drowsy driving until sleepiness symptoms resolve. Sleep Study - Results Type of Sleep Study: Polysomnography Prior sleep studies: No Polysomnography/Home Sleep Study results: IMPRESSION: The quality of the study is good. The patient had normal sleep efficiency. The sleep architecture was abnormal for sleep fragmentation and reduced amount of time spent in slow wave sleep (N3). Respiratory monitoring showed very severe obstructive sleep apnea-hypopnea (AHI = 64.4) associated with frequent arousals, oxyhemoglobin desaturation and severe hypoxia (tomasz oxygen saturation of 60%). Baseline oxygen saturation was normal. The patient only slept supine during this study (supine AHI = 64.4; non- supine = 0.00). Snore was moderate to loud in intensity. There was no significant periodic leg movement of sleep. Cardiac rhythm was normal sinus rhythm with cyclic increase in heart rate in response to the respiratory events. No abnormal behavior (parasomnia) observed during the night. Allergies and Home Medications Home medication list reviewed: Yes (no new meds) Review of Systems Review of systems same as previous: Yes (no changes) Physical Exam Heart Rate: 59 O2 Saturation: 98 Height: 6 ft 2 in Weight: 235 lb Body Mass Index: 30.2 BMI Classification: Obese Impression and Plan 1. Obstructive Sleep Apnea-Hypopnea Syndrome, very severe, with lowest oxygen saturation of 60%. Obviously this is the cause of the patients symptoms of unrefreshed sleep, and excessive daytime sleepiness. Positive pressure therapy could benefit heart disease and arrhythmia. As mentioned above, the patient will be started on nasal autoCPAP therapy with pressure set at 4-15 cmH2O. A manual titration study will be completed if unable to find optimal treatment pressure with office adjustments. Compliance guidelines also reviewed. A copy of compliance guidelines will be given for reference at check out. Because the apnea is more severe supine, I instructed to avoid sleeping supine using pillow positioning until able to start CPAP use. * Nasal auto CPAP therapy, pressure at 4-15 cm H2O. * Attempt to lose weight. * Avoid alcohol consumption near bedtime. * Avoid supine sleep until using CPAP. * The patient is again cautioned about driving until sleepiness completely resolves. * Return one month after CPAP obtained. I will assess response to therapy and compliance at that time. Counseling Topics: Weight loss health impact Visit Type: In Office Time Spent with Patient (minutes): 20 Provider Statement: I spent 100% of the Face to Face Visit with the patient with greater than 50% spent counseling the patient and coordination of care.
== END 2020-10-23 14:03 | disposition home or self-care (01) ==
LOC: SC 14:02
PROVIDERS: ATTEND Nurse Practitioner Family
DX: G47.33 Obstructive sleep apnea (adult) (pediatric) (principal); E66.9 Obesity, unspecified; Z68.30 Body mass index [BMI] 30.0-30.9, adult
CPT/HCPCS: 99213; G0463; 99212

== ENCOUNTER 2020-12-09 11:08 | Outpatient (CLI) | payer MEDICARE ==
--- NOTE | 2020-12-09 11:49 | SLEEP CARE CONSULTATION ---
Information from patient questionnaire entered by Jo Dean. I have reviewed and concur with the information entered by Jo Dean. This document represents the service I personally performed and the decisions made by , Hope Strauss ARNP. History of Present Illness Service Date and Time: 12/09/2020 1108 Previous diagnosis: Very Severe, Obstructive Sleep Apnea-Hypopnea Syndrome AHI: 64.4 (in 2020) Reason for follow up: first compliance Equipment type: CPAP Equipment obtained from: Other ([facility]; got initial supplies) Mask style: Nasal pillows Mask brand: Respironics Backup mask available: Yes (other mask) Last cushion change: 3 weeks Prior sleep studies: Yes Year and Where: 2020 - [facility] Type of Sleep Study: Polysomnography HPI additional information: RONA RODRIGES was diagnosed to have very severe, AHI 64.4, obstructive sleep apnea-hypopnea syndrome and returned today for CPAP therapy first compliance follow-up. Sleep Study - Results Type of Sleep Study: Polysomnography Prior sleep studies: No CPAP Compliance Data - Data Reviewed with Patient Average duration of nightly device use: 7 hr 9 min Compliance rate %: 97 Current pressure setting (cmH2O): 4-15 (median 7.0, avg 10.0, max 11.6) Humidity settin Average residual AHI: 18.4 Central apnea: 2.8 Obstructive apnea: 1.1 Subjective Patient concerns: reports: mask discomfort (with full face mask, nasal is better). denies: aerophagia, air blowing in eyes, mask leak noise, condensation in mask/hose, nasal congestion, dry mouth, nose, throat, epistaxis, other Observed to snore while using device: No Current pressure setting perceived as: too high On therapy, patient: reports: sleeping better, awakening more refreshed, being more awake and alert during the day, more rested overall, other (not waking up as he used to at night; still taking naps). denies: drowsiness while driving Initial Butler Sleepiness Scale score: 18 (in 2020) Current Butler Sleepiness Scale score: 8 Allergies and Home Medications Drug allergies reviewed: Yes (NKDA) Home medication list reviewed: Yes (no changes) Review of Systems Review of systems same as previous: Yes (no changes) Physical Exam Heart Rate: 58 O2 Saturation: 96 Height: 6 ft 2 in Weight: 237 lb Body Mass Index: 30.4 BMI Classification: Obese Impression and Plan 1. Obstructive Sleep Apnea-Hypopnea Syndrome, very severe, with good treatment c ompliance and fair apnea control with elevated residual AHI. On CPAP therapy, the patient has better sleep quality and is more rested overall. The patients pressure will be changed to autoCPAP 7-11 cmH20 for elevation of residual AHI. Patient advised to contact me if pressure change is uncomfortable so that it can be adjusted. Goals for apnea control discussed. I think it would be advisable to get a titration study to be able to better pinpoint best treatment settings. His current download showing unknown respiratory events. I will follow up with him after he obtains the titration study. Patient's apnea severity and rationale for treatment to reduce apnea, improve sleep quality and reduce cardiovascular and cerebrovascular events was reviewed. I also reviewed the benefit of consistent device use of CPAP for cardiac disease and arrhythmia. * Titration study * Change auto CPAP pressure to 7-11 cmH2O * Notify me if snoring with mask or feeling that the pressure is too much or too little * Attempt to lose weight * Call this office if any problems using CPAP * Return for follow up after titration study, or sooner if concerns arise Counseling Topics: Spare mask, Weight loss health impact Visit Type: In Office Time Spent with Patient (minutes): 22 Provider Statement: I spent 100% of the Face to Face Visit with the patient with greater than 50% spent counseling the patient and coordination of care.
== END 2020-12-09 11:09 | disposition home or self-care (01) ==
LOC: SC 11:08
PROVIDERS: ATTEND Nurse Practitioner Family
DX: G47.33 Obstructive sleep apnea (adult) (pediatric) (principal); E66.9 Obesity, unspecified; Z68.30 Body mass index [BMI] 30.0-30.9, adult
CPT/HCPCS: 99213; G0463; 99212

== ENCOUNTER 2020-12-22 16:33 | Emergency (ER) | payer MEDICARE ==
--- NOTE | 2020-12-22 16:54 | ED Physician Documentation ---
History of Present Illness - Stated complaint Stated Complaint: FAST PULSE - Chief complaint Chief Complaint: Cardiac - History obtained from History obtained from: Patient - History of Present Illness Timing: How many days ago (2) Pain level max: 2 Pain level now: 0 - Additonal information Additional information: 80-year-old male presents to the emergency department with chest pain last night, lasting 30 minutes, felt like a tightness in his chest. Nonradiating. Nothing made it better or worse. Today he did feel slightly lightheaded standing up and this is typical when he goes into atrial fibrillation. He is on Eliquis. States his heart rate was elevated 1 30-1 40, took his as needed metoprolol and heart rate decreased to 70-80. Currently asymptomatic. Has had a cardiac ablation in the past. Review of Systems Constitutional: denies: Fever, Chills Nose: denies: Rhinorrhea / runny nose, Congestion Throat: denies: Sore throat Cardiac: reports: Chest pain / pressure Respiratory: denies: Cough Skin: denies: Rash Musculoskeletal: denies: Neck pain, Back pain Neurologic: denies: Headache PD PAST MEDICAL HISTORY - Past Medical History Cardiovascular: Hypertension, High cholesterol, Coronary artery disease, [place], At rial fibrillation Respiratory: None Endocrine/Autoimmune: None GI: None : Benign prostate hypertrophy HEENT: Chronic hearing loss Psych: None Musculoskeletal: Osteoarthritis, Chronic back pain Derm: Other - Past Surgical History Past Surgical History: Yes Ortho: Hip replacement, Knee replacement, Shoulder arthroplasty Cardiovascular: Coronary stent Derm: Skin cancer surgery - Present Medications Home Medications: Ambulatory Orders Medication Instructions Recorded Confirmed Aspirin 81 mg PO DAILY 01/24/17 03/02/18 Finasteride 5 mg PO DAILY 01/24/17 03/02/18 Rivaroxaban [Xarelto] 20 mg PO DAILY #30 tablet 01/24/17 03/02/18 Simvastatin 40 mg PO DAILY PM 01/24/17 03/02/18 Tamsulosin [Flomax] 0.4 mg PO DAILY 01/24/17 03/02/18 Metoprolol Tartrate [Lopressor] 50 mg PO PRN PRN 11/24/18 Propafenone HCl 300 mg PO PRN PRN 11/24/18 11/24/18 dilTIAZem HCL [Diltiazem ER] 180 mg PO DAILY #30 cap.er.deg 11/24/18 - Allergies Allergies/Adverse Reactions: Allergies Allergy/AdvReac Type Severity Reaction Status Date / Time No Known Drug Allergies Allergy Verified 12/22/20 16:36 - Social History Does the pt smoke?: No Smoking Status: Never smoker Does the pt drink ETOH?: Yes Does the pt have substance abuse?: No - Immunizations Immunizations are current?: No Immunizations: TDAP >10years/unknown - POLST Patient has POLST: No PD ED PE NORMAL - Vitals Vital signs reviewed: Yes - General General: Alert and oriented X 3, No acute distress, Well developed/nourished - HEENT HEENT: PERRL, Moist mucous membranes - Neck Neck: Supple, no meningeal sign - Cardiac Cardiac: Strong equal pulses, Other (irregular) - Respiratory Respiratory: No respiratory distress, Clear bilaterally - Abdomen Abdomen: Soft, Non tender, Non distended - Derm Derm: Warm and dry - Extremities Extremities: No edema, No calf tenderness / cord - Neuro Neuro: Alert and oriented X 3 - Psych Psych: Normal mood, Normal affect Results - Vitals Vitals: Vital Signs - 24 hr 12/22/20 12/22/20 12/22/20 16:36 17:13 18:17 Temperature 36.5 C 36.9 C Heart Rate 68 82 81 Respiratory 16 18 16 Rate Blood Pressure 115/76 100/65 102/83 H O2 Saturation 100 100 98 Oxygen O2 Source Room air - EKG (time done) 1645 Rate: Rate (enter#) (80) Rhythm: Atrial fibrillation Fitzpatrick: LAD QRS: Normal Ischemia: Normal ST segments - Labs Labs: Laboratory Tests 12/22/20 12/22/20 12/22/20 17:10 17:10 17:10 WBC 8.5 RBC 4.23 L Hgb 13.4 L Hct 39.3 L MCV 92.9 MCH 31.7 H MCHC 34.1 RDW 13.2 Plt Count 152 MPV 9.3 Neut # (Auto) 4.1 Lymph # (Auto) 1.2 L [place] # (Auto) 2.7 H Eos # (Auto) 0.1 Baso # (Auto) 0.0 Absolute Nucleated RBC 0.00 Nucleated RBC % 0.0 Manual Slide Review Indicated Platelet Estimate NORMAL (130-450,000) Platelet Morphology NORMAL APPEARANCE RBC Morph Micro Appear NORMAL APPEARANCE Sodium 140 Potassium 3.9 Chloride 105 Carbon Dioxide 26 Anion Gap 9.0 BUN 21 H Creatinine 0.8 Estimated GFR (MDRD) 93 Glucose 97 Calcium 9.1 Total Bilirubin 0.8 AST 16 ALT 15 Alkaline Phosphatase 58 Troponin I High Sens 32.2 H* Total Protein 7.0 Albumin 4.2 Globulin 2.8 Albumin/Globulin Ratio 1.5 Lipase 29 - Rads (name of study) cxr Radiology: Final report received, EMP read contemporaneously, See rad report (no acute disease) PD MEDICAL DECISION MAKING - ED course Complexity details: reviewed results, re-evaluated patient, considered differential, d/w patient ED course: 80-year-old male with chest pain last night. A. fib with RVR earlier today. Took his metoprolol and symptoms resolved. Patient asymptomatic here. No significant elevation of his high-sensitivity troponin. We will have him continue his current medications and follow-up with his doctor for further care. Patient counseled regarding signs and symptoms for which I believe and urgent re-evaluation would be necessary. Patient with good understanding of and agreement to plan and is comfortable going home at this time This document was made in part using voice recognition software. While efforts are made to proofread this document, sound alike and grammatical errors may occur. Departure - Departure Disposition: 01 Home, Self Care Clinical Impression: Atrial fibrillation Qualifiers: Atrial fibrillation type: unspecified Qualified Code(s): I48.91 - Unspecified atrial fibrillation Condition: Good Instructions: ED Afib Follow-Up: Rashida Jara MD [Primary Care Provider] - Within 1 week Comments: Please continue your current medications. You can use your metoprolol as needed. Please return for chest pain, shortness of breath or worsening symptoms. Discharge Date/Time: 12/22/20 18:18
[2020-12-22 17:16] LABS: BASOPHILS % (AUTO) 0.2 %; EOSINOPHILS # (AUTO) 0.1 10^3/uL (0.0-0.7); EOSINOPHILS % (AUTO) 1.2 %; HCT - HEMATOCRIT 39.3 % (42.0-52.0); HGB - HEMOGLOBIN 13.4 g/dL (14.0-18.0); LYMPHOCYTES # (AUTO) 1.2 10^3/uL (1.5-3.5); LYMPHOCYTES % (AUTO) 13.8 %; MEAN CORPUSCULAR HEMOGLOBIN 31.7 pg (27.0-31.0); MEAN CORPUSCULAR HGB CONC 34.1 g/dL (32.0-36.0); MEAN CORPUSCULAR VOLUME 92.9 fL (80.0-94.0); MEAN PLATELET VOLUME 9.3 fL (7.4-11.4); MONOCYTES # (AUTO) 2.7 10^3/uL (0.0-1.0); MONOCYTES % (AUTO) 31.3 %; NEUTROPHILS # (AUTO) 4.1 10^3/uL (1.5-6.6); NEUTROPHILS % (AUTO) 48.3 %; PLT - PLATELET COUNT 152 10^3/uL (130-450); RED BLOOD COUNT 4.23 10^6/uL (4.70-6.10); RED CELL DISTRIBUTION WIDTH 13.2 % (12.0-15.0); WHITE BLOOD COUNT 8.5 x10^3/uL (4.8-10.8)
[2020-12-22 17:26] LABS: SLIDE REVIEW? Indicated
--- NOTE | 2020-12-22 17:34 | XRAY Report ---
PROCEDURE: Chest 1 View X-Ray INDICATIONS: Chest Pain TECHNIQUE: One view of the chest was acquired. COMPARISON: 11/24/2018, 03/02/2018 FINDINGS: Surgical changes and devices: None. Lungs and pleura: An incomplete inspiratory result is noted, with low lung volumes and crowding of t he vascular markings. No focal infiltrates are seen. No large pneumothorax or large pleural effusion can be seen. Mediastinum: Mediastinal contours appear normal. Heart size is normal. Bones and chest wall: No suspicious bony lesions. Age-appropriate degenerative changes are seen. Overlying soft tissues appear unremarkable. IMPRESSION: Limited portable chest examination, without an acute abnormality identified. Reviewed by: Riley Vo MD on 12/22/2020 4:33 PM NAOMY Approved by: Riley Vo MD on 12/22/2020 4:33 PM AKYAYA Station ID: [id number]
[2020-12-22 17:39] LABS: ALBUMIN 4.2 g/dL (3.2-5.5); ALBUMIN/GLOBULIN RATIO 1.5 (1.0-2.2); BILIRUBIN,TOTAL 0.8 mg/dL (0.2-1.0); CALCIUM 9.1 mg/dL (8.5-10.3); CREATININE 0.8 mg/dL (0.6-1.2); POTASSIUM 3.9 mmol/L (3.5-5.0)
[2020-12-22 17:41] LABS: PLATELET ESTIMATE, MANUAL NORMAL (130-450,000) (NORMAL); PLATELET MORPHOLOGY NORMAL APPEARANCE (NORMAL); RBC MORPHOLOGY (MULTIPLE) NORMAL APPEARANCE (NORMAL)
[2020-12-22 18:18] VITALS: BP 102/83
== END 2020-12-22 18:18 | disposition home or self-care (01) ==
LOC: ED 16:33
DX: I48.91 Unspecified atrial fibrillation (principal); Z79.01 Long term (current) use of anticoagulants; I10 Essential (primary) hypertension
CPT/HCPCS: 36415; 80053; 83690; 84484; 85025; 93005; 99284

== ENCOUNTER 2021-01-07 14:04 | Outpatient (CLI) | payer MEDICARE | END 2021-01-07 14:05 | disposition home or self-care (01) | LOC: RT 14:04 | PROVIDERS: ATTEND Internal Medicine Interventional Cardiology | DX: I48.0 Paroxysmal atrial fibrillation (principal); Z98.890 Other specified postprocedural states | CPT/HCPCS: 93005 ==

== ENCOUNTER 2021-01-10 01:48 | Emergency (ER) | payer MEDICARE ==
--- NOTE | 2021-01-10 01:59 | ED Physician Documentation ---
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 He takes Xarelto for atrial fibrillation. One week ago he tripped and fell forward, struck face/ nose and had epistaxis at that time that resolved with pressure (pinching his nose) and thus he did not seek medical attention. No further bleeding until tonight. Review of Systems Nose: reports: Epistaxis. denies: Rhinorrhea / runny nose, Congestion, Sinus pressure / pain Neurologic: denies: Headache PD PAST MEDICAL HISTORY - Past Medical History Cardiovascular: Hypertension, High cholesterol, Coronary artery disease, [place], Atrial fibrillation Respiratory: None Endocrine/Autoimmune: None GI: None : Benign prostate hypertrophy HEENT: Chronic hearing loss Psych: None Musculoskeletal: Osteoarthritis, Chronic back pain Derm: Other - Past Surgical History Past Surgical History: Yes Ortho: Hip replacement, Knee replacement, Shoulder arthroplasty Cardiovascular: Coronary stent Derm: Skin cancer surgery - Present Medications Home Medications: Ambulatory Orders Medication Instructions Recorded Confirmed Aspirin 81 mg PO DAILY 01/24/17 01/10/21 Finasteride 5 mg PO DAILY 01/24/17 01/10/21 Rivaroxaban [Xarelto] 20 mg PO DAILY #30 tablet 01/24/17 01/10/21 Tamsulosin [Flomax] 0.4 mg PO DAILY 01/24/17 01/10/21 Amoxicillin 500 mg PO TID #30 cap 01/10/21 Atorvastatin [Lipitor] 20 mg PO QPM 01/10/21 01/10/21 Flecainide [Tambocar] 50 mg PO BID 01/10/21 01/10/21 dilTIAZem HCL [Diltiazem 24Hr ER 120 mg PO QID 01/10/21 01/10/21 (Xr)] - Allergies Allergies/Adverse Reactions: Allergies Allergy/AdvReac Type Severity Reaction Status Date / Time No Known Drug Allergies Allergy Verified 12/22/20 16:36 - Social History Does the pt smoke?: No Smoking Status: Never smoker Does the pt drink ETOH?: Yes Does the pt have substance abuse?: No - Immunizations Immunizations are current?: No Immunizations: TDAP >10years/unknown - POLST Patient has POLST: No PD ED PE NORMAL - Vitals Vital signs reviewed: Yes - General General: Alert and oriented X 3, No acute distress, Well developed/nourished - HEENT HEENT: Moist mucous membranes, Other (faint bilateral infraorbital echymosis. no facial/nasal bony tenderness. No active bleeding nor clots bilateral nares) - Cardiac Cardiac: RRR, No murmur Results - Vitals Vitals: Oxygen O2 Source Room air - Labs Labs: Laboratory Tests 01/10/21 01/10/21 01/10/21 06:05 06:05 06:05 WBC 5.3 RBC 3.72 L Hgb 11.8 L Hct 34.6 L MCV 93.0 MCH 31.7 H MCHC 34.1 RDW 13.1 Plt Count 137 MPV 9.1 Neut # (Auto) Not Reportable Lymph # (Auto) Not Reportable [place] # (Auto) Not Reportable Eos # (Auto) Not Reportable Baso # (Auto) Not Reportable Absolute Nucleated RBC Not Reportable Total Counted 100 Band Neuts % (Manual) 0 Abnorm Lymph % (Manual) 0 Nucleated RBC % Not Reportable Neutrophils # (Manual) 2.9 Lymphocytes # (Manual) 0.7 L Monocytes # (Manual) 1.4 H Eosinophils # (Manual) 0.2 Basophils # (Manual) 0.0 Differential Comment MANUAL DIFFERENTIAL WBC Morphology NORMAL APPEARANCE Platelet Estimate NORMAL (130-450,000) Platelet Morphology NORMAL APPEARANCE RBC Morph Micro Appear NORMAL APPEARANCE PT 17.8 H INR 1.6 H APTT 41.6 H Sodium 138 Potassium 4.3 Chloride 104 Carbon Dioxide 26 Anion Gap 8.0 BUN 18 Creatinine 0.7 Estimated GFR (MDRD) 108 Glucose 108 H Calcium 8.9 PD MEDICAL DECISION MAKING - ED course Complexity details: reviewed results, re-evaluated patient, considered differential, d/w patient ED course: nasal clamp was placed when he was initially triaged and had been in place for approximately 15-20 minutes by the time I evaluated him. I removed the nasal clamp and had good visualization of left nare using otoscope and there was no active bleeding and no clots. At that time, I was recommending that we observe him for 20-30 minutes and then discharge if no further bleeding. He then sat up and had bleeding from left nare. Reexamination showed slow, steady bleeding from superior aspect of left nare beyond area of visualization. Two sprays of afrin were given to left nare and 4.5 cm rapid rhino inserted left nare. Within 10-15 minutes, bleeding was evidence through/around the device. This was then removed, txa instilled (atomized) into left nare and a new 4.5 cm rapid rhino was inser gilberto (txa also applied to the device prior to insertion), but bleeding again resumed around the device. I contacted ENT interventional radiology technologist for [facility] (Dr. Alva); he recommends reversing the anticoagulant and admission. I discussed the case with Dr. Bright (hospitalist at [facility]), does not feel comfortable with admission to [facility] due to lack of ENT coverage. I then d/w hospitalist at [facility] who would be willing to accept patient provided ENT can see patient as consult. I then recontacted Dr. Alva who says patient would need to be transferred to [facility] for ENT consult. [facility] has no beds sid ilable. Patient continued to have slow but persistent left nare epistaxis despite other attempts at packing (removed the second rapid rhino and placed merocel [place] packing with same results (rapid bleeding through saturated device), removed and replaced with [id number] merocel sponge cut to 5.5 cm which seemed to slow but not stop the bleeding and the device became saturated and bleeding continued through the saturated packing). Call placed to [facility], awaiting call back from ENT interventional radiology technologist. Care of patient turned over to Dr. Stephen at end of my shift pending disposition. Departure - Departure Disposition: 01 Home, Self Care Clinical Impression: Anterior epistaxis, Adequate anticoagulation on anticoagulant therapy Condition: Good Instructions: ED Nasal Packing Anterior Removable Follow-Up: ANKIT LYNN [Physician No Access] - Prescriptions: Amoxicillin 500 mg PO TID #30 cap Comments: Follow-up with the facial surgeon in a week. Call his office for an appointment. Return for new or worsening symptoms. He should be on antibiotics as long as the packing is in. Discharge Date/Time: 01/10/21 10:05
[2021-01-10] MEDS ORDERED: LIDOCAINE VISCOUS 2% 15 ML UDC MM STA (02:44)
[2021-01-10] MEDS ORDERED: OXYMETAZOLINE HCL 100 SPRAYS BOTTLE NAS STA (02:44)
[2021-01-10] MEDS ORDERED: TRANEXAMIC ACID 1,000 MG/10 ML VIAL NAS STA ×2 (02:58→07:39)
[2021-01-10] MEDS ORDERED: LIDOCAINE 1%-EPI 1:100000 20 ML MDV SUBQ STA (06:05)
[2021-01-10 06:12] LABS: BASOPHILS % (AUTO) 0.2 %; EOSINOPHILS % (AUTO) 1.5 %; HCT - HEMATOCRIT 34.6 % (42.0-52.0); HGB - HEMOGLOBIN 11.8 g/dL (14.0-18.0); LYMPHOCYTES % (AUTO) 15.9 %; MEAN CORPUSCULAR HEMOGLOBIN 31.7 pg (27.0-31.0); MEAN CORPUSCULAR HGB CONC 34.1 g/dL (32.0-36.0); MEAN PLATELET VOLUME 9.1 fL (7.4-11.4); MONOCYTES % (AUTO) 30.6 %; NEUTROPHILS % (AUTO) 47.8 %; PLT - PLATELET COUNT 137 10^3/uL (130-450); RED BLOOD COUNT 3.72 10^6/uL (4.70-6.10); RED CELL DISTRIBUTION WIDTH 13.1 % (12.0-15.0); WHITE BLOOD COUNT 5.3 x10^3/uL (4.8-10.8)
[2021-01-10 06:14] LABS: ABNORMAL LYMPHS % (MANUAL) 0 %; BAND NEUTROPHILS % (MANUAL) 0 %
[2021-01-10 06:17] LABS: INR 1.6 (0.8-1.2); PT - PROTHROMBIN TIME 17.8 secs (9.9-12.6)
[2021-01-10 06:21] LABS: CALCIUM 8.9 mg/dL (8.5-10.3); CREATININE 0.7 mg/dL (0.6-1.2); POTASSIUM 4.3 mmol/L (3.5-5.0)
[2021-01-10 06:24] LABS: PARTIAL THROMBOPLASTIN TIME 41.6 secs (24.9-33.3)
[2021-01-10 06:29] LABS: EOSINOPHILS # (MANUAL) 0.2 10^3/uL (0-0.7); LYMPHOCYTES # (MANUAL) 0.7 10^3/uL (1.5-3.5); LYMPHOCYTES % (MANUAL) 14 %; MONOCYTES # (MANUAL) 1.4 10^3/uL (0.0-1.0); NEUTROPHILS # (MANUAL) 2.9 10^3/uL (1.5-6.6); PLATELET MORPHOLOGY NORMAL APPEARANCE (NORMAL); RBC MORPHOLOGY (MULTIPLE) NORMAL APPEARANCE (NORMAL)
[2021-01-10 06:30] LABS: DIFFERENTIAL COMMENT MANUAL DIFFERENTIAL; PLATELET ESTIMATE, MANUAL NORMAL (130-450,000) (NORMAL); WBC MORPHOLOGY (MULTIPLE) NORMAL APPEARANCE (NORMAL)
[2021-01-10] MEDS ORDERED: COCAINE 4 ML BOTTLE TOP STA (07:39)
[2021-01-10] MEDS ORDERED: SILVER NITRATE APPLICATOR TOP STA ×2 (07:56→09:35)
[2021-01-10 07:59] VITALS: BP 149/73
--- NOTE | 2021-01-10 08:20 | ED Physician Documentation ---
ED Addendum - Addendum Addendum: 01/10/21 08:[address] Guillermo at shift change. Briefly this is an 80-year-old gentleman who is on Xarelto who had a facial injury last week associated with nosebleed, now has had oozing since last night. Dr. Guillermo had spoken with ENT on-call at [facility] and recommended transfer, however they are full. Call was out to [facility]. I saw and examined the patient at bedside. On my initial evaluation he had a Merocel packing in place with oozing blood regardless. The packing was removed. I atomized a mixture of 4 mL of tranexamic acid and 2 mL of cocaine. No clear site of bleeding was seen but a couple sites that were potentials were cauterized with silver nitrate. This did not result in lasting hemostasis. I placed a phone consult to Freddie Carvajal who will come and see the patient as well. 01/10/21 10:02 Dr. Carvajal came in and saw the patient and spent quite a bit of time with him and was able to cauterize a source of the bleeding and packed him with Surgicel. Recommends amoxicillin and follow-up in a week for packing removal.
--- NOTE | 2021-01-10 10:15 | CONSULTATION NOTE ---
Referring Provider Name of Referring Provider:: Billy Whitfield Consult Date: 01/10/21 Chief Complaint - Chief Complaint Chief Complaint: Nose bleed History of Present Illness - History of Present Illness HPI Comment/Other: Last week he struck his nose from a mechanical fall. He was able to control the bleeding at home. Last night the L naris began bleeding again. He has been in the ER through the night attempting to control the epistaxis. Cocaine, rhinorockets, cautery, pressure, afrin have all been used unsuccessfully. OMFS was consulted to evaluate and manage the bleeding. History - Past Medical History Cardiovascular: reports: Hypertension, High cholesterol, Coronary artery disease, [place], Atrial fibrillation Respiratory: reports: None Endocrine/Autoimmune: reports: None GI: reports: None : reports: Benign prostate hypertrophy HEENT: reports: Chronic hearing loss Psych: reports: None Musculoskeletal: reports: Osteoarthritis, Chronic back pain Derm: reports: Other MRSA Hx?: No - Past Surgical History Ortho: reports: Hip replacement, Knee replacement, Shoulder arthroplasty Cardiovascular: reports: Coronary stent Derm: reports: Skin cancer surgery - POLST Patient has POLST: No Meds/Allgy - Home Medications Home Medications: Ambulatory Orders Medication Instructions Recorded Confirmed Aspirin 81 mg PO DAILY 01/24/17 01/10/21 Finasteride 5 mg PO DAILY 01/24/17 01/10/21 Rivaroxaban [Xarelto] 20 mg PO DAILY #30 tablet 01/24/17 01/10/21 Tamsulosin [Flomax] 0.4 mg PO DAILY 01/24/17 01/10/21 Amoxicillin 500 mg PO TID #30 cap 01/10/21 Atorvastatin [Lipitor] 20 mg PO QPM 01/10/21 01/10/21 Flecainide [Tambocar] 50 mg PO BID 01/10/21 01/10/21 dilTIAZem HCL [Diltiazem 24Hr ER 120 mg PO QID 01/10/21 01/10/21 (Xr)] - Allergies Allergies/Adverse Reactions: Allergies Allergy/AdvReac Type Severity Reaction Status Date / Time No Known Drug Allergies Allergy Verified 12/22/20 16:36 Review of Systems - Constitutional Constitutional: denies: Fever, Chills, Weakness - Eyes Eyes: denies: Pain, Blurred vision - Ears, Nose & Throat Ears, Nose & Throat: reports: Nasal pain, Postnasal drainage - Cardiovascular Cariovascular: denies: Irregular heart rate, Chest pain - Respiratory Respiratory: denies: Cough Exam - Vital Signs Vital Signs: Vital Signs x48h Pulse Resp BP Pulse Ox 01/10/21 07:58 54 L 16 149/73 H 99 01/10/21 06:00 56 L 18 145/94 H 97 01/10/21 04:47 56 L 16 143/80 H 97 - Physical Exam General Appearance: positive: No acute distress Eyes Bilateral: positive: PERRL, EOMI ENT: positive: Other (Slow oozing from the L naris.) Neck: positive: Nml inspection Respiratory: positive: No respiratory distress Conclusion and Plan - Lab Results Laboratory Results 01/10/21 06:05: Sodium 138, Potassium 4.3, Chloride 104, Carbon Dioxide 26, Anion Gap 8.0, BUN 18, Creatinine 0.7, Estimated GFR (MDRD) 108, Glucose 108 H, Calcium 8.9 01/10/21 06:05: PT 17.8 H, INR 1.6 H, APTT 41.6 H 01/10/21 06:05: WBC 5.3, RBC 3.72 L, Hgb 11.8 L, Hct 34.6 L, MCV 93.0, MCH 31.7 H, MCHC 34.1, RDW 13.1, Plt Count 137, MPV 9.1, Neut # (Auto) Not Reportable, Lymph # (Auto) Not Reportable, [place] # (Auto) Not Reportable, Eos # (Auto) Not Reportable, Baso # (Auto) Not Reportable, Absolute Nucleated RBC Not Reportable, Total Counted 100, Band Neuts % (Manual) 0, Abnorm Lymph % (Manual) 0, Nucleated RBC % Not Reportable, Neutrophils # (Manual) 2.9, Lymphocytes # (Manual) 0.7 L, Monocytes # (Manual) 1.4 H, Eosinophils # (Manual) 0.2, Basophils # (Manual) 0.0, Differential Comment MANUAL DIFFERENTIAL, WBC Morphology NORMAL APPEARANCE, Platelet Estimate NORMAL (130-450,000), Platelet Morphology NORMAL APPEARANCE, RBC Morph Micro Appear NORMAL APPEARANCE - Diagnosis Diagnosis: Epistaxis - Plan Plan: 80 yo M w/ acute epistaxis of the L naris - s/p mechanical GLF one week ago - on xarelto Plan: Exploration of the L naris for source of bleeding, chemical cauterization, packing w/ surgicel.
--- NOTE | 2021-01-10 10:26 | OPERATIVE REPORT ---
Operative Report - General Procedure Date: 01/10/21 Planned Procedure: control of epistaxis of the L naris Pre-Op Diagnosis: Epistaxis L Procedure Performed: Control of epistaxis L naris w/ cautery and packing Post Op Diagnosis: Same - Procedure Note Primary Surgeon: Freddie Carvajal DDS Indications: 80 yo M w/ epistaxis L naris. It was decided that control of the epistaxis was indicated. The RBAs of this procedure were discussed w/ the patient, including pain, swelling, continued bleeding, need for further surgeries, need for transfer to another facility, scarring inside the nose, difficulty breathing through the nose. Adequate time was given to answer all questions and informed consent was obtained. The pt was enocountered in the ER. He was in a supine position on the ER bed. Used a nasal speculum and a headlight w/ a fraiser suction to explore the L naris. Removed old blood clot. Could see a significant amount of chemical cauterization of the septum and of the lateral nasal mucosa. Bleeding was coming from anterior superior nose, kiesselbach's plexus. Stopped the bleeding w/ silver nitrate. Packed Surgice, a 6 cm x 1 cm sponge, into the site. Observed the pt for 20 min. Remained hemostatic. Care of the pt was returned to the ER staff, w/ the patient in stable condition. Complications: None
== END 2021-01-10 10:05 | disposition home or self-care (01) ==
LOC: ED 01:48
DX: R04.0 Epistaxis (principal); Z79.01 Long term (current) use of anticoagulants
CPT/HCPCS: 30901; 36415; 80048; 85025; 85610; 85730; 99283; A9270

== ENCOUNTER 2021-07-07 15:22 | Outpatient (CLI) | payer MEDICARE ==
[2021-07-07 16:04] VITALS: BP 121/71
--- NOTE | 2021-07-07 16:04 | SLEEP CARE CONSULTATION ---
Information from patient questionnaire entered by Arline Lara MA. I have reviewed and concur with the information entered by Arline Lara MA. This document represents the service I personally performed and the decisions made by , Hope Strauss ARNP. History of Present Illness Service Date and Time: 07/07/2021 1522 Previous diagnosis: Very Severe, Obstructive Sleep Apnea-Hypopnea Syndrome AHI: 64.4 (in 2020) Reason for follow up: other (7 MONTH F/U ) Equipment type: CPAP Equipment obtained from: Other ([facility]; getting supplies as needed) Mask style: Nasal pillows Backup mask available: No (will need to keep old mask when replaced) Last cushion change: 1.5 weeks [facility]: [facility] Type of Sleep Study: Polysomnography HPI additional information: RONA RODRIGES was diagnosed to have very severe, AHI 64.4, obstructive sleep apnea-hypopnea syndrome and returned today for CPAP therapy 7 month follow-up for elevated residual AHI. Sleep Study - Results Type of Sleep Study: Polysomnography Prior sleep studies: No [facility] Compliance Data - Data Reviewed with Patient Average duration of nightly device use: 6 HOURS 46 MINUTES Compliance rate %: 88 Current pressure setting (cmH2O): 7-11 Average residual AHI: 8.5 Central apnea: 4.1 Obstructive apnea: .3 Average large leak: 32.8 Subjective Missed days of use due to: reports: mask issues, travel Patient concerns: reports: mask leak noise (needs different size). denies: aerophagia, mask discomfort, air blowing in eyes, condensation in mask/hose, nasal congestion, dry mouth, nose, throat, epistaxis, other Observed to snore while using device: No Current pressure setting perceived as: comfortable On therapy, patient: reports: other (He does not feel it is making difference in daytime sleepiness; he still takes naps). denies: drowsiness while driving Initial Metter Sleepiness Scale score: 18 (in 2020) Current Metter Sleepiness Scale score: 10 (06/2021) Allergies and Home Medications Known drug allergies: No Home medication list reviewed: Yes (no changes) Allergy and home medication list: Allergies No Known Drug Allergies Allergy (Verified 12/22/20 16:36) Review of Systems Review of systems same as previous: Yes (no changes) Physical Exam Vital signs obtained and entered by: GHANSHYAM BURNHAM Blood Pressure: 121/71 (RIGHT, PULE 57, RESP 16,) Cuff size: wrist Heart Rate: 57 O2 Saturation: 96 (CLOTH MASK ) Height: 6 ft 4 in Weight: 240 lb Body Mass Index: 29.2 BMI Classification: Overweight Impression and Plan 1. Obstructive Sleep Apnea-Hypopnea Syndrome, very severe, with good treatment compliance and fair apnea control with elevation of residual AHI. His apnea indices are: central AHI is 4.1, hypopnea 3.3 and obstructive AHI is 0.3. He also has large leak average elevated at 32.8 LPM which could be causing some elevation of his apnea index. On CPAP therapy, the patient does not feel there is a difference in his sleep quality and daytime tiredness. He still takes a daily nap. His Metter initially was 18/24 and today is 10/24 showing improvement in his daytime sleepiness. I think his CPAP therapy pressure is adequate at this time, no changes needed. He gets some mask leak noise since changing to a slightly larger mask and he will order the medium size that fit better without leaking as much. Patient's apnea severity and rationale for treatment to reduce apnea, improve sleep quality and reduce cardiovascular and cerebrovascular events was reviewed. I also reviewed the benefit of consistent device use of CPAP for cardiac disease, and arrhythmia. 2. Overweight, unspecified. Currently patients BMI is 29.2. Patient is advised to try to lose weight. Weight loss can be done with reducing portion size, reducing refined foods and balancing content with vegetables, fruit and whole grain foods. In addition, patient encouraged to get regular exercise. * Continue auto CPAP pressure at 7-11 cmH2O * Notify me if snoring with mask or feeling that the pressure is too much or too little * Attempt to lose weight * Call this office if any problems using CPAP * Return for follow up in 1 year, or sooner if concerns arise Counseling Topics: Spare mask, Weight loss health impact Visit Type: In Office Time Spent with Patient (minutes): 23 Provider Statement: I spent 100% of the Face to Face Visit with the patient with greater than 50% spent counseling the patient and coordination of care.
== END 2021-07-07 15:23 | disposition home or self-care (01) ==
LOC: SC 15:22
PROVIDERS: ATTEND Nurse Practitioner Family
DX: G47.33 Obstructive sleep apnea (adult) (pediatric) (principal); E66.3 Overweight; Z68.29 Body mass index [BMI] 29.0-29.9, adult
CPT/HCPCS: 99213; G0463; 99212

== ENCOUNTER 2021-07-11 08:22 | Emergency (ER) | payer MEDICARE ==
--- NOTE | 2021-07-11 08:58 | ED Physician Documentation ---
PD HPI Fall - Stated complaint Stated Complaint: L RIB PAIN - Chief complaint Chief Complaint: Trauma Ch/Bk - History obtained from History obtained from: Patient - History of Present Illness Mechanism of injury: Slipped (he states he tripped and fell onto floor/striking left side/back on furniture on the way.) Fall distance: Standing position Where injury occurred: Home Timing - onset: How many days ago (4) Injury(ies) location: Chest (left lateral mid ribs. More pain at left lower rib margin and left upper abd.), Abdomen. No: Head, Neck Associated symptoms: Dyspnea (hurting with breathing left side.). No: LOC, AMS, Neck pain, Paresthesias Symptoms improve with: Rest Worsens with: Movement, Palpation Contributing factors: Anticoagulated Similar symptoms before: Has not had sx before Recently seen: Not recently seen Review of Systems Constitutional: denies: Fever Nose: denies: Rhinorrhea / runny nose, Congestion Throat: denies: Oral lesions / sores Cardiac: reports: Chest pain / pressure. denies: Palpitations Respiratory: reports: Dyspnea. denies: Cough, Wheezing GI: reports: Abdominal Pain (left upper abd/loser costal margin), Nausea. denies: Vomiting, Diarrhea Skin: denies: Abrasion (s), Laceration (s) Neurologic: denies: Focal weakness, Numbness, Altered mental status, Headache, Head injury, LOC PD PAST MEDICAL HISTORY - Past Medical History Cardiovascular: Hypertension, High cholesterol, Coronary artery disease, [place], Atrial fibrillation Respiratory: None Endocrine/Autoimmune: None GI: None : Benign prostate hypertrophy HEENT: Chronic hearing loss Psych: None Musculoskeletal: Osteoarthritis, Chronic back pain Derm: Other - Past Surgical History Past Surgical History: Yes Ortho: Hip replacement, Knee replacement, Shoulder arthroplasty Cardiovascular: Coronary stent Derm: Skin cancer surgery - Present Medications Home Medications: Ambulatory Orders Medication Instructions Recorded Confirmed Aspirin 81 mg PO DAILY 01/24/17 01/10/21 Finasteride 5 mg PO DAILY 01/24/17 01/10/21 Rivaroxaban [Xarelto] 20 mg PO DAILY #30 tablet 01/24/17 01/10/21 Tamsulosin [Flomax] 0.4 mg PO DAILY 01/24/17 01/10/21 Amoxicillin 500 mg PO TID #30 cap 01/10/21 Atorvastatin [Lipitor] 20 mg PO QPM 01/10/21 01/10/21 Flecainide [Tambocar] 50 mg PO BID 01/10/21 01/10/21 dilTIAZem HCL [Diltiazem 24Hr ER 120 mg PO QID 01/10/21 01/10/21 (Xr)] - Allergies Allergies/Adverse Reactions: Allergies Allergy/AdvReac Type Severity Reaction Status Date / Time No Known Drug Allergies Allergy Verified 07/11/21 08:43 - Social History Does the pt smoke?: No Smoking Status: Never smoker Does the pt drink ETOH?: Yes Does the pt have substance abuse?: No - Immunizations Immunizations are current?: No Immunizations: TDAP >10years/unknown - POLST Patient has POLST: No PD ED PE NORMAL - Vitals Vital signs reviewed: Yes - General General: Alert and oriented X 3, No acute distress, Well developed/nourished - HEENT HEENT: Atraumatic - Neck Neck: Supple, no meningeal sign, No bony TTP - Cardiac Cardiac: RRR, No murmur - Respiratory Respiratory: Clear bilaterally, Other (left lower costal margin tender. left sided chestwall tneder anterolateral mid ribs without crepitance nor deformity. ) - Abdomen Abdomen: Normal bowel sounds, Soft, Non distended, No organomegaly, Other (tender LUQ with some guarding. More tender left lower costal margin. gain without deformity/crepitance. 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, No motor deficit, No sensory deficit, Normal speech Results - Vitals Vitals: Vital Signs - 24 hr 07/11/21 07/11/21 07/11/21 08:43 10:13 12:18 Temperature 36.6 C 36.6 C Heart Rate 58 L 51 L 45 L Respiratory 20 18 18 Rate Blood Pressure 151/58 H 151/75 H O2 Saturation 97 100 100 Oxygen O2 Source Room air - Labs Labs: Laboratory Tests 07/11/21 07/11/21 10:17 10:17 WBC 5.2 RBC 4.15 L Hgb 12.8 L Hct 37.5 L MCV 90.4 MCH 30.8 MCHC 34.1 RDW 13.1 Plt Count 123 L MPV 9.5 Neut # (Auto) Not Reportable Lymph # (Auto) Not Reportable [place] # (Auto) Not Reportable Eos # (Auto) Not Reportable Baso # (Auto) Not Reportable Absolute Nucleated RBC Not Reportable Total Counted 100 Band Neuts % (Manual) 2 Abnorm Lymph % (Manual) 0 Metamyelocytes % 2 H Nucleated RBC % Not Reportable Neutrophils # (Manual) 2.8 Lymphocytes # (Manual) 1.2 L Monocytes # (Manual) 1.1 H Eosinophils # (Manual) 0.0 Basophils # (Manual) 0.0 Differential Comment MANUAL DIFFERENTIAL Platelet Estimate DECREASED (<130,000) Platelet Morphology NORMAL APPEARANCE RBC Morph Micro Appear NORMAL APPEARANCE Sodium 138 Potassium 4.3 Chloride 103 Carbon Dioxide 27 Anion Gap 8.0 BUN 17 Creatinine 0.7 Estimated GFR (MDRD) 108 Glucose 107 H Calcium 8.8 Total Bilirubin 0.6 AST 16 ALT 17 Alkaline Phosphatase 58 Total Protein 6.8 Albumin 4.5 Globulin 2.3 Albumin/Globulin Ratio 2.0 Lipase 29 - Rads (name of study) chest/abd/pelvic CT Radiology: Prelim report reviewed (anterolateral left 7th rib fracture. No other acute process.), See rad report PD MEDICAL DECISION MAKING - ED course Complexity details: reviewed results (chest xray showed possible 2 rib fractures. However he has pain in different area too, so will get CT to exclude other injuries.), considered differential, d/w patient Departure - Departure Disposition: 01 Home, Self Care Clinical Impression: Anticoagulant long-term use Sprain of costochondral joint Qualifiers: Encounter type: initial encounter Qualified Code(s): S23.41XA - Sprain of ribs, initial encounter Left rib fracture Qualifiers: Encounter type: initial encounter Rib fracture type: single rib Fracture type: closed Qualified Code(s): S22.32XA - Fracture of one rib, left side, initial encounter for closed fracture Condition: Stable Record reviewed to determine appropriate education?: Yes Instructions: ED Fx Rib Follow-Up: Rashida Jara MD [Primary Care Provider] - Comments: You do have a single rib fracture of the seventh rib noted on the left posterior rib. I presume your left anterior chest pain is some injury of the cartilage in that area. They should both improve over 3 to 4 weeks timeframe. I would suggest some Tylenol 500 mg 4 times a day regularly for the next several days to week. Add your pain medicine at home if needed for worse pain. The CT scan does not show any organ injuries of the lung kidney spleen etc. You should be able to continue your usual medications. Recheck if not improving moderately over the next week more. Return if worsening overall. Discharge Date/Time: 07/11/21 12:36
--- NOTE | 2021-07-11 09:47 | XRAY Report ---
PROCEDURE: Ribs w/PA Chest LT INDICATIONS: injury TECHNIQUE: 3 views of the left ribs were acquired, along with a single view chest. COMPARISON: Correlation is made with chest , 12/22/2020. FINDINGS: Surgical changes and devices: None. Bones and chest wall: Mildly displaced rib fractures are seen involving the left anterolateral sixth and seventh ribs. No suspicious bony lesions. Age-appropriate degenerative changes are seen. Overl yoana soft tissues appear unremarkable. Lungs and pleura: An incomplete inspiratory result is noted, with low lung volumes and crowding of t he vascular markings. No focal infiltrates are seen. No large pneumothorax or large pleural effusion can be seen. Mediastinum: Mediastinal contours appear normal. Heart size is normal. IMPRESSION: Mildly displaced left anterolateral sixth and seventh rib fractures. No associated pneumothorax is seen. Reviewed by: Riley Vo MD on 07/11/2021 8:46 AM NAOMY Approved by: Riley Vo MD on 07/11/2021 8:46 AM NAOMY Station ID: [id number]
[2021-07-11 10:27] LABS: BASOPHILS % (AUTO) 0.2 %; EOSINOPHILS % (AUTO) 1.9 %; HCT - HEMATOCRIT 37.5 % (42.0-52.0); HGB - HEMOGLOBIN 12.8 g/dL (14.0-18.0); LYMPHOCYTES % (AUTO) 16.2 %; MEAN CORPUSCULAR HEMOGLOBIN 30.8 pg (27.0-31.0); MEAN CORPUSCULAR HGB CONC 34.1 g/dL (32.0-36.0); MEAN CORPUSCULAR VOLUME 90.4 fL (80.0-94.0); MEAN PLATELET VOLUME 9.5 fL (7.4-11.4); MONOCYTES % (AUTO) 31.5 %; NEUTROPHILS % (AUTO) 45.6 %; PLT - PLATELET COUNT 123 10^3/uL (130-450); RED BLOOD COUNT 4.15 10^6/uL (4.70-6.10); RED CELL DISTRIBUTION WIDTH 13.1 % (12.0-15.0); WHITE BLOOD COUNT 5.2 x10^3/uL (4.8-10.8)
[2021-07-11 10:31] LABS: ABNORMAL LYMPHS % (MANUAL) 0 %
[2021-07-11] MEDS ORDERED: IOVERSOL 320 100 ML VIAL IVP ONE (10:37)
[2021-07-11 10:42] LABS: ALBUMIN 4.5 g/dL (3.2-5.5); BILIRUBIN,TOTAL 0.6 mg/dL (0.2-1.0); CALCIUM 8.8 mg/dL (8.5-10.3); CREATININE 0.7 mg/dL (0.6-1.2); POTASSIUM 4.3 mmol/L (3.5-5.0); TOTAL PROTEIN 6.8 g/dL (6.7-8.2)
[2021-07-11 10:55] LABS: BAND NEUTROPHILS % (MANUAL) 2 %; DIFFERENTIAL COMMENT MANUAL DIFFERENTIAL; LYMPHOCYTES # (MANUAL) 1.2 10^3/uL (1.5-3.5); LYMPHOCYTES % (MANUAL) 23 %; METAMYELOCYTES % (MANUAL) 2 %; MONOCYTES # (MANUAL) 1.1 10^3/uL (0.0-1.0); NEUTROPHILS # (MANUAL) 2.8 10^3/uL (1.5-6.6); PLATELET ESTIMATE, MANUAL DECREASED (<130,000) (NORMAL); PLATELET MORPHOLOGY NORMAL APPEARANCE (NORMAL); RBC MORPHOLOGY (MULTIPLE) NORMAL APPEARANCE (NORMAL)
[2021-07-11] MEDS: IOVERSOL 320 100 ML VIAL IVP ONE (11:14)
--- NOTE | 2021-07-11 11:36 | CT Report ---
PROCEDURE: Abdomen/Pelvis W INDICATIONS: fall/ injury left abd CONTRAST: IV CONTRAST: Optiray 320 ml: 100 PO CONTRAST: *NO PO CONTRAST TECHNIQUE: After the administration of IV contrast, 5 mm thick sections acquired from the diaphragms to the symp hysis. 5 mm thick coronal and sagittal reformats were acquired. For radiation dose reduction, the f ollowing was used: automated exposure control, adjustment of mA and/or kV according to patient size. COMPARISON: Prior abdomen and pelvis CT, 04/16/2016. Correlation is made with the accompanying chest CT, 07/11/2021. Correlation is made with the accompanying rib series, 07/11/2021. FINDINGS: Image quality: There is artifact associated with the metallic hardware. ABDOMEN: Lung bases: Lung bases are clear. Heart size is normal. Solid organs: Simple appearing right liver dome cysts are seen. The liver demonstrates normal size a nd demonstrates no suspicious lesions. The spleen demonstrates normal size and demonstrates no suspic ious lesions. Gallbladder wall does not appear thickened. Biliary system is non dilated. Pancreas enhances norm ally. No adrenal nodules. Kidneys demonstrate normal size and enhancement, without hydronephrosis. Peritoneum and bowel: Bowel loops demonstrate normal wall thickness and caliber. No free fluid or a ir. A normal appendix is incidentally noted. Nodes and vessels: No retroperitoneal or mesenteric adenopathy by size criteria. Aorta and inferior vena cava are normal in size. Atherosclerotic calcification is seen. Miscellaneous: No ventral hernias. PELVIS: Genitourinary: Bladder wall thickness is normal. Miscellaneous: No inguinal adenopathy. Bilateral fat-containing inguinal hernias are seen, right la rger than left. Bones: There is a nondisplaced left anterolateral seventh rib fracture. Right hip arthroplasty hardw are is seen, with associated streak artifact. No suspicious bony lesions. No vertebral body compress ion fractures. S-shaped scoliotic curvature is incidentally noted. Relatively prominent bony degener ative changes can be seen. IMPRESSION: No left abdomen injury is seen. No splenic injury is seen. Nondisplaced left anterolateral seventh rib fracture. Incidental note is made of: Simple appearing right liver dome cysts S-shaped scoliotic curvature Relatively prominent bony degenerative change Right hip arthroplasty hardware Reviewed by: Riley Vo MD on 07/11/2021 10:35 AM AKDT Approved by: Riley Vo MD on 07/11/2021 10:35 AM NAOMY Station ID: [id number]
--- NOTE | 2021-07-11 11:40 | CT Report ---
PROCEDURE: CHEST W INDICATIONS: fall, injury left chest CONTRAST: IV CONTRAST: Optiray 320 ml: 100 PO CONTRAST: *NO PO CONTRAST TECHNIQUE: After the administration of intravenous contrast, 1 mm axial images were acquired from the pulmonary apices through the posterior costophrenic angles. Axial 5 mm soft tissue kernel reconstructions were performed as well as 8 mm axial MIP and coronal and sagittal 5 mm reformations. For radiation dose reduction, the following was used: automated exposure control, adjustment of mA and/or kV according to patient size. COMPARISON: Correlation is made with the accompanying rib series and abdomen pelvis CT, 07/11/2021. FINDINGS: Image quality: Excellent. Lungs and pleura: Mild dependent atelectasis is seen. No pleural effusions or pneumothorax. Central and peripheral airways are patent and normal in caliber. Mediastinum: Heart size is normal. Coronary artery calcification is seen. No pericardial effusion. No mediastinal or hilar adenopathy by size criteria. Thoracic aorta and central pulmonary arteries a re normal in size. Esophagus is normal in caliber. No hiatal hernia. Bones and chest wall: A nondisplaced left anterolateral seventh rib fracture can be seen. No suspici ous bony lesions. Chronic anterior superior ribs are seen within the mid thoracic spine, without acut e features. There is accentuated thoracic kyphosis. Age-appropriate degenerative changes are seen. No axillary or supraclavicular adenopathy by size criteria. The thyroid is normal in size and there are no incidental findings. Abdomen: Simple appearing right liver dome cysts can be seen. Visualized upper abdominal solid organ s appear normal. Upper abdominal bowel loops are normal in caliber. IMPRESSION: Nondisplaced left anterolateral seventh rib fracture, without an associated pneumothorax. Incidental note is made of: Mid thoracic wedge deformities, with associated accentuated thoracic kyphosis Reviewed by: Riley Vo MD on 07/11/2021 10:38 AM NAOMY Approved by: Riley Vo MD on 07/11/2021 10:38 AM NAOMY Station ID: [id number]
[2021-07-11 12:19] VITALS: BP 151/75
[2021-07-11] MEDS: HYDROmorphone 1 MG/ML CARPUJECT IVP STA (12:19)
[2021-07-11] MEDS: KETOROLAC 30 MG/ML VIAL IVP STA (12:21)
[2021-07-11] MEDS: ACETAMINOPHEN 325 MG TABLET PO STA (12:21)
== END 2021-07-11 12:36 | disposition home or self-care (01) ==
LOC: ED 08:22
DX: S22.42XA Multiple fractures of ribs, left side, initial encounter for closed fracture (principal); W01.190A Fall on same level from slipping, tripping and stumbling with subsequent striking against furniture, initial encounter; Y92.003 Bedroom of unspecified non-institutional (private) residence as the place of occurrence of the external cause
CPT/HCPCS: 36415; 71101; 71260; 74177; 80053; 83690; 85025; 93005; 96374; 99282; 99284; A9270; Q9967

== ENCOUNTER 2021-12-20 08:33 | Emergency (ER) | payer MEDICARE ==
[2021-12-20] MEDS ORDERED: OXYMETAZOLINE HCL 100 SPRAYS BOTTLE MM STA (10:07)
--- NOTE | 2021-12-20 11:45 | ED Physician Documentation ---
PD HPI HEENT - Stated complaint Stated Complaint: MOUTH BLEED - Chief complaint Chief Complaint: Heent - History obtained from History obtained from: Patient - Additional information Additional information: The patient comes to the emergency department chief complaint of oozing of blood in mouth. He is on Xarelto and does not recall any oral trauma but has noticed a slow trickle of blood coming from somewhere in the back of his mouth on the right side. He does not have any pain. He does not remember biting his cheek or getting anything stuck in his gums. No dental pain. No lightheadedness or shortness of breath. No other complaints at this time. Review of Systems Ten Systems: 10 systems reviewed and negative Constitutional: reports: Reviewed and negative Eyes: reports: Reviewed and negative Ears: reports: Reviewed and negative Nose: reports: Reviewed and negative Throat: reports: Other (Bleeding from mouth) Cardiac: reports: Reviewed and negative Respiratory: reports: Reviewed and negative GI: reports: Reviewed and negative : reports: Reviewed and negative Skin: reports: Reviewed and negative Musculoskeletal: reports: Reviewed and negative Neurologic: reports: Reviewed and negative Psychiatric: reports: Reviewed and negative Endocrine: reports: Reviewed and negative Immunocompromised: reports: Reviewed and negative PD PAST MEDICAL HISTORY - Past Medical History Cardiovascular: Hypertension, High cholesterol, Coronary artery disease, [place], Atrial fibrillation Respiratory: None Endocrine/Autoimmune: None GI: None : Benign prostate hypertrophy HEENT: Chronic hearing loss Psych: None Musculoskeletal: Osteoarthritis, Chronic back pain Derm: Other - Past Surgical History Past Surgical History: Yes Ortho: Hip replacement, Knee replacement, Shoulder arthroplasty Cardiovascular: Coronary stent Derm: Skin cancer surgery - Present Medications Home Medications: Ambulatory Orders Medication Instructions Recorded Confirmed Aspirin 81 mg PO DAILY 01/24/17 01/10/21 Finasteride 5 mg PO DAILY 01/24/17 01/10/21 Rivaroxaban [Xarelto] 20 mg PO DAILY #30 tablet 01/24/17 01/10/21 Tamsulosin [Flomax] 0.4 mg PO DAILY 01/24/17 01/10/21 Amoxicillin 500 mg PO TID #30 cap 01/10/21 Atorvastatin [Lipitor] 20 mg PO QPM 01/10/21 01/10/21 Flecainide [Tambocar] 50 mg PO BID 01/10/21 01/10/21 dilTIAZem HCL [Diltiazem 24Hr ER 120 mg PO QID 01/10/21 01/10/21 (Xr)] - Allergies Allergies/Adverse Reactions: Allergies Allergy/AdvReac Type Severity Reaction Status Date / Time No Known Drug Allergies Allergy Verified 12/20/21 08:50 - Social History Does the pt smoke?: No Smoking Status: Never smoker Does the pt drink ETOH?: Yes Does the pt have substance abuse?: No - Immunizations Immunizations are current?: No Immunizations: TDAP >10years/unknown - POLST Patient has POLST: No PD ED PE NORMAL - Vitals Vital signs reviewed: Yes - General General: Alert and oriented X 3, No acute distress, Well developed/nourished - HEENT HEENT: Atraumatic, PERRL, EOMI, Moist mucous membranes, Dentition benign, Other (No obvious oral trauma. Very tiny trickle of blood coming from soft tissue just posterior to right second Maxillary molar. Tissue not able to be visualized, secondary to depth of sulcus and large size of patient's teeth. No mass or fluctuance. No buccal trauma) - Neck Neck: Supple, no meningeal sign - Respiratory Respiratory: No respiratory distress - Derm Derm: Normal color, Warm and dry, No rash - Extremities Extremities: No deformity - Neuro Neuro: Alert and oriented X 3, Other (Grossly intact) - Psych Psych: Normal mood, Normal affect Results - Vitals Vitals: Vital Signs - 24 hr 12/20/21 08:47 Temperature 36.2 C L Heart Rate 54 L Respiratory 14 Rate Blood Pressure 151/77 H O2 Saturation 96 Oxygen O2 Source Room air PD MEDICAL DECISION MAKING - ED course Complexity details: considered differential, d/w patient ED course: After holding pressure with gauze, the bleeding did slow somewhat but did not completely resolve. Oxymetazoline was then applied topically via gauze which did not seem to impact the bleeding much., Despite being in place for 25 minutes. TXA was then applied via gauze with pressure and left in place for about 30 minutes, after which bleeding had completely stopped. The patient immediately was palpating the area with his tongue and I have counseled him not to do this as it may start the bleeding again. We have discussed how to manage the bleeding if it does start although I expect ultimately this will resolve on its own. I advised the patient not to eat or drink anything for the next 3 hours and when he does eat again, to take only a soft diet and do any chewing that is necessary on the left side. We discussed the usual indications for follow-up and return. Departure - Departure Disposition: 01 Home, Self Care Clinical Impression: Gingival bleeding Condition: Stable Comments: You have been treated first with oxymetazoline today, which is a topical agent that is also known as "Afrin". You have also been treated with tranexamic acid. Oxymetazoline is a vasoconstrictor, or medication that causes the blood vessels to constrict and stop bleeding. Tranexamic acid is a medication that assists in forming blood clots. The medications plus holding of pressure with gauze has helped your bleeding to stop. However, the area is very freshly coagulated and will be prone to bleeding if it is traumatized. Therefore, you should keep your tongue out of the area and avoid any movement or chewing as much as possible for the next few hours. When you do eat and drink, you should have only very soft foods and should do any chewing you need to do on the left side to avoid restarting the bleeding. If bleeding does recur, please take a single piece of gauze and roll it up, as I have shown you, and wedge behind the tooth and around the sides. Take another piece of gauze and folded up into a thick wad and wedged this as far back as you can between your upper and lower teeth and bite down on it to increase pressure on the bleeding area. Leave this in place for approximately 1 hour and the bleeding should stop again. Please continue your Xarelto at this point, as this bleeding is very minor and the benefits of taking the Xarelto will be much more than the benefits of not taking it. Discharge Date/Time: 12/20/21 11:46
[2021-12-20 12:15] VITALS: BP 152/73
== END 2021-12-20 12:14 | disposition home or self-care (01) ==
LOC: ED 08:33
DX: K06.8 Other specified disorders of gingiva and edentulous alveolar ridge (principal)
CPT/HCPCS: 99282; 99283; A9270

== ENCOUNTER 2022-06-30 09:11 | Outpatient (CLI) | payer MEDICARE ==
[2022-06-30 10:28] VITALS: BP 138/62
--- NOTE | 2022-06-30 10:28 | SLEEP CARE CONSULTATION ---
Information from patient questionnaire entered by Geno Watts. I have reviewed and concur with the information entered by Geno Watts. This document represents the service I personally performed and the decisions made by me, Hope Strauss ARNP. History of Present Illness Service Date and Time: 06/30/2022 0911 Previous diagnosis: Very Severe, Obstructive Sleep Apnea-Hypopnea Syndrome AHI: 64.4 (in 2020) Reason for follow up: annual (LAST SEEN 06/2021) Equipment type: CPAP (Resmed Airsense 10 s/u 10/2020) Equipment obtained from: Other ([facility]; getting supplies as needed) Mask style: Nasal Backup mask available: Yes (other mask) Last cushion change: 2 weeks ago Prior sleep studies: No Year and [facility] Type of Sleep Study: Polysomnography Sleep Study - Results Type of Sleep Study: Polysomnography Prior [facility]: [facility] Compliance Data - Data Reviewed with Patient Average duration of nightly device use: 7 HRS 11 MINS Compliance rate %: 91 (12/31/21-06/28/22; 175/180 days used) Current pressure setting (cmH2O): 7-11 (avg 10.7, max 10.9) Average residual AHI: 9.6 Central apnea: 4.9 Obstructive apnea: 0.2 Average large leak: 9.0 l/min Subjective Missed days of use due to: reports: travel Patient concerns: reports: air blowing in eyes (just needs adjustment), mask leak noise, condensation in mask/hose (occasional). denies: aerophagia, mask discomfort, nasal congestion, dry mouth, nose, throat, epistaxis Observed to snore while using device: No Current pressure setting perceived as: comfortable On therapy, patient: reports: sleeping better, awakening more refreshed, being more awake and alert during the day, more rested overall. denies: drowsiness while driving Initial [place] Sleepiness Scale score: 18 (in 2020) Current [place] Sleepiness Scale score: 8 Allergies and Home Medications Known drug allergies: No Drug allergies reviewed: Yes Home medication list reviewed: Yes (clopidogrel 75 mg tab; nitroglycerin 0.4 mg SL tab) Allergy and home medication list: Allergies No Known Drug Allergies Allergy (Verified 06/30/22 08:38) Review of Systems Review of systems same as previous: No (Watchman procedure on Heart) Physical Exam Vital signs obtained and entered by: Hope MARTINEZ Blood Pressure: 138/62 Cuff size: long Heart Rate: 51 O2 Saturation: 97 Height: 6 ft 4 in Weight: 251 lb Body Mass Index: 30.5 BMI Classification: Obese Impression and Plan 1. Obstructive Sleep Apnea-Hypopnea Syndrome, very severe, with good treatment compliance and fair apnea control with mildly elevated residual AHI. On CPAP therapy, the patient has better sleep quality and is more rested overall. Patient has significant improvement of their sleep apnea and is satisfied with current CPAP therapy. Patient feels the pressure is too high. His central index is elevated at 4.9. I will adjust the patients pressure to autoCPAP 7-10 cmH20 for elevation of residual AHI. Patient advised to contact me if pressure change is uncomfortable so that it can be adjusted. Goals for apnea control discussed. Patient's apnea severity and rationale for treatment to reduce apnea, improve sleep quality and reduce cardiovascular and cerebrovascular events was reviewed. I also reviewed the benefit of consistent device use of CPAP for cardiac disease and arrhythmia. 2. Obesity, unspecified. Currently patients BMI is 30.5. Obesity increases the risk of apnea, CPAP pressure requirements and overall health risks especially cardiovascular and diabetes. Thus patient is advised to lose weight. The patient's CPAP pressure range should accommodate some weight loss. * Change auto CPAP pressure to 7-10 cmH2O * Update supplies * Notify me if snoring with mask or feeling that the pressure is too much or too little * Attempt to lose weight * Call this office if any problems using CPAP * Return for follow up in 1 year, or sooner if concerns arise Counseling Topics: Spare mask, Weight loss health impact Visit Type: In Office Time Spent with Patient (minutes): 26 Provider Statement: I spent 100% of the Face to Face Visit with the patient with greater than 50% spent counseling the patient and coordination of care.
== END 2022-06-30 09:12 | disposition home or self-care (01) ==
LOC: SC 09:11
PROVIDERS: ATTEND Nurse Practitioner Family
DX: G47.33 Obstructive sleep apnea (adult) (pediatric) (principal); E66.9 Obesity, unspecified; Z68.30 Body mass index [BMI] 30.0-30.9, adult
CPT/HCPCS: 99213; G0463; 99212

== ENCOUNTER 2022-11-23 19:51 | Outpatient (CLI) | payer MEDICARE | END 2022-11-23 19:52 | disposition home or self-care (01) | LOC: SC 19:51 | PROVIDERS: ATTEND Nurse Practitioner Family | DX: G47.33 Obstructive sleep apnea (adult) (pediatric) (principal); G47.61 Periodic limb movement disorder | CPT/HCPCS: 95811 ==

== ENCOUNTER 2022-12-14 13:46 | Outpatient (CLI) | payer MEDICARE ==
--- NOTE | 2022-12-14 14:06 | Sleep Patient Instructions ---
Sleep Center Visit Summary - Patient Visit Information Reason for Visit: Followup Titration study - Patient Instructions Additional Instructions: You were here for follow up of titration study. You will be continued on CPAP therapy with pressure at 8 cmH2O. Please let us know if the pressure change is uncomfortable and we can make further adjustments of the pressure. You should follow up with sleep care in 1-2 months. You may contact us sooner for any questions or concerns. - Clinic Information Contact: [facility] [address] [place] [id number] [email or web address] T: [phone]
--- NOTE | 2022-12-14 14:12 | SLEEP CARE CONSULTATION ---
Information from patient questionnaire entered by Geno Watts. I have reviewed and concur with the information entered by Geno Watts. This document represents the service I personally performed and the decisions made by , Hope Strauss ARNP. History of Present Illness Service Date and Time: 12/14/2022 1346 Initial [place] Sleepiness Scale score: 18 (in 2020) Current [place] Sleepiness Scale score: 8 (12/14/22) Additional HPI information: RONA RODRIGES returns for follow up of the sleep study with a manual CPAP titration study performed on 11/23/2022. The patient was informed of the following polysomnography findings: The quality of the study is good. CPAP was initiated at 6 cmH2O and titrated up to CPAP at 7 cmH2O. CPAP at 8 cmH2O appeared to be optimal (AHI of 3.1 per hour on the pressure). There was supine REM sleep on the pressure. Oxygen saturation was mildly low due to low-normal baseline oxygen saturation. Lower CPAP settings allowed more frequent residual respiratory events. The patient appeared to have tolerated positive airway pressure therapy fairly well. And there was severe periodic leg movement of sleep contributing to the sleep fragmentation. Sleep Study - Results Type of Sleep Study: Polysomnography (TITRATION F/U COMPLETED 11/23/2022) Prior sleep studies: No Year and Where: 2020 - [facility] Polysomnography/Home Sleep Study results: IMPRESSION: The quality of the study is good. CPAP was initiated at 6 cmH2O and titrated up to CPAP at 7 cmH2O. CPAP at 8 cmH2O appeared to be optimal (AHI of 3.1 per hour on the pressure). There was supine REM sleep on the pressure. Oxygen saturation was mildly low due to low-normal baseline oxygen saturation. Lower CPAP settings allowed more frequent residual respiratory events. The patient appeared to have tolerated positive airway pressure therapy fairly well. The patients sleep efficiency was reduced due to several prolonged awakenings during the night. The sleep architecture was abnormal for sleep fragmentation and reduced amount of time spent in slow wave sleep (N3). There was severe periodic leg movement of sleep contributing to the sleep fragmentation. Cardiac rhythm was normal sinus rhythm without significant arrhythmia. No abnormal behavior (parasomnia) observed during the night. Allergies and Home Medications Known drug allergies: No Drug allergies reviewed: Yes Home medication list reviewed: Yes (no changes) Allergy and home medication list: Allergies No Known Drug Allergies Allergy Review of Systems Review of systems same as previous: Yes (no changes; pacemaker possibly this fall) Physical Exam Vital signs obtained and entered by: GENO Sparks MA Blood Pressure: 128/70 (LEFT ARM) Cuff size: regular Heart Rate: 53 O2 Saturation: 96 Height: 6 ft 4 in Weight: 246 lb 12.8 oz Body Mass Index: 30.0 BMI Classification: Obese Impression and Plan 1. Obstructive Sleep Apnea-Hypopnea Syndrome, very severe. He returns today for results of his titration study. His optimal pressure for his very severe sleep apnea was 8 cmH2O. The patients pressure will be changed to CPAP 8 cmH20. Patient advised to contact me if pressure change is uncomfortable so that it can be adjusted. Goals for apnea control discussed. Patient's apnea severity and rationale for treatment to reduce apnea, improve sleep quality and reduce cardiovascular and cerebrovascular events was reviewed. I also reviewed the benefit of consistent device use of CPAP for cardiac disease and arrhythmia. 2. Obesity, unspecified. Currently patients BMI is 30. Obesity increases the risk of apnea, CPAP pressure requirements and overall health risks especially cardiovascular and diabetes. Thus patient is advised to lose weight. 3. Periodic limb movement, severe, that did contribute to sleep fragmentation. Periodic limb movement of sleep (PLMS) is characterized by episodes of repetitive limb movements that occur during sleep and usually involve the lower limbs. The etiology is unknown. Caffeine can aggravate PLMS and should be avoided. Sleep hygiene methods can also improve sleep as well as lifestyle changes such as regular exercise. Patient was advised that no treatment is n eeded at this time. If symptoms increase, then further evaluation is indicated. * Change auto CPAP pressure to 8 cmH2O * Notify me if snoring with mask or feeling that the pressure is too much or too little * Attempt to lose weight * Call this office if any problems using CPAP * Return for follow up in 1-2 months, or sooner if concerns arise Counseling Topics: Spare mask, Weight loss health impact Visit Type: In Office Time Spent with Patient (minutes): 16 Provider Statement: I spent 100% of the Face to Face Visit with the patient with greater than 50% spent counseling the patient and coordination of care.
[2022-12-14 14:14] VITALS: BP 128/70; O2SAT 96
== END 2022-12-14 13:47 | disposition home or self-care (01) ==
LOC: SC 13:46
PROVIDERS: ATTEND Nurse Practitioner Family
DX: G47.33 Obstructive sleep apnea (adult) (pediatric) (principal); G47.61 Periodic limb movement disorder; E66.9 Obesity, unspecified; Z68.30 Body mass index [BMI] 30.0-30.9, adult
CPT/HCPCS: 99213; G0463; 99212

== ENCOUNTER 2023-03-01 10:24 | Outpatient (CLI) | payer MEDICARE ==
--- NOTE | 2023-03-01 11:04 | Sleep Patient Instructions ---
Sleep Center Visit Summary - Patient Visit Information Reason for Visit: 2-month follow-up - Patient Instructions Additional Instructions: You were here for follow up of CPAP therapy. You will be continued on CPAP therapy with pressure at 7-8 cmH2O. Please let us know if the pressure change is uncomfortable and we can make further adjustments of the pressure. You should follow up with sleep care in 3 months. You may contact us sooner for any questions or concerns. - Clinic Information Contact: [facility] [address] [place] [id number] [email or web address] T: [phone]
--- NOTE | 2023-03-01 11:06 | SLEEP CARE CONSULTATION ---
Information from patient questionnaire entered by Geno Watts. I have reviewed and concur with the information entered by Geno Watts. This document represents the service I personally performed and the decisions made by , Hope Strauss ARNP. History of Present Illness Service Date and Time: 03/01/2023 1024 Previous diagnosis: Very Severe, Obstructive Sleep Apnea-Hypopnea Syndrome AHI: 64.4 (in 2020) Reason for follow up: other (2 MONTH F/U) Equipment type: CPAP (RESMED Airsense 10, s/u 10/2020) Equipment obtained from: Other ([facility]; getting supplies as needed through [employer]) Mask style: Nasal Mask brand: Respironics Backup mask available: Yes Last cushion change: 3-4 days ago [facility]: [facility] Type of Sleep Study: Polysomnography (TITRATION F/U COMPLETED 11/23/2022) HPI additional information: RONA RODRIGES was diagnosed to have very severe, AHI 64.4, obstructive sleep apnea-hypopnea syndrome and returned today for CPAP therapy two month follow-up. Sleep Study - Results Type of Sleep Study: Polysomnography (TITRATION F/U COMPLETED 11/23/2022) Prior sleep studies: No [facility] Compliance Data - Data Reviewed with Patient Average duration of nightly device use: 8 HRS 34 MINS Compliance rate %: 93 (12/30/2022-02/27/23; 56/60 days used) Current pressure setting (cmH2O): 8 Average residual AHI: 9.0 Central apnea: 5.1 Obstructive apnea: 0.1 Hypopnea: 3.7 Subjective Missed days of use due to: reports: travel Patient concerns: reports: mask leak noise (just needed adjustment). denies: aerophagia, mask discomfort, air blowing in eyes, condensation in mask/hose, nasal congestion, dry mouth, nose, throat, epistaxis Observed to snore while using device: No Current pressure setting perceived as: comfortable On therapy, patient: reports: sleeping better, awakening more refreshed, being more awake and alert during the day, more rested overall. denies: drowsiness while driving Initial [place] Sleepiness Scale score: 18 (in 2020) Current [place] Sleepiness Scale score: 10 Allergies and Home Medications Known drug allergies: No Drug allergies reviewed: Yes Home medication list reviewed: Yes (no changes) Allergy and home medication list: Allergies No Known Drug Allergies Allergy (Verified 02/28/23 09:13) Review of Systems Review of systems same as previous: Yes (no changes) Physical Exam Vital signs obtained and entered by: HOPE ZEPEDA Blood Pressure: 115/68 Cuff size: wrist (right) Heart Rate: 68 O2 Saturation: 95 Height: 6 ft 3 in Weight: 243 lb 12.8 oz Body Mass Index: 30.4 BMI Classification: Obese Impression and Plan 1. Obstructive Sleep Apnea-Hypopnea Syndrome, very severe, with good treatment compliance and fair apnea control with mildly elevated residual AHI. On CPAP therapy, the patient has better sleep quality and is more rested overall. The patients pressure will be changed to autoCPAP 7-8 cmH20 for elevation of residual AHI. Patient advised to contact me if pressure change is uncomfortable so that it can be adjusted. Goals for apnea control discussed. Patient's apnea severity and rationale for treatment to reduce apnea, improve sleep quality and reduce cardiovascular and cerebrovascular events was reviewed. I also reviewed the benefit of consistent device use of CPAP for cardiac disease and arrhythmia. 2. Obesity, unspecified. Currently patients BMI is 30.4. Obesity increases the risk of apnea, CPAP pressure requirements and overall health risks especially cardiovascular and diabetes. Thus patient is advised to lose weight. * Change auto CPAP pressure to 7-8 cmH2O * Notify me if snoring with mask or feeling that the pressure is too much or too little * Attempt to lose weight * Call this office if any problems using CPAP * Return for follow up in 3 months, or sooner if concerns arise Counseling Topics: Spare mask, Weight loss health impact Follow up with Sleep Care in: 3 months Visit Type: In Office Time Spent with Patient (minutes): 20 Provider Statement: I spent 100% of the Face to Face Visit with the patient with greater than 50% spent counseling the patient and coordination of care.
[2023-03-01 11:08] VITALS: BP 115/68; O2SAT 95
== END 2023-03-01 10:25 | disposition home or self-care (01) ==
LOC: SC 10:24
PROVIDERS: ATTEND Nurse Practitioner Family
DX: G47.33 Obstructive sleep apnea (adult) (pediatric) (principal); E66.9 Obesity, unspecified; Z68.30 Body mass index [BMI] 30.0-30.9, adult
CPT/HCPCS: 99213; G0463; 99212

== ENCOUNTER 2023-05-31 11:15 | Outpatient (CLI) | payer MEDICARE ==
--- NOTE | 2023-05-31 12:02 | Sleep Patient Instructions ---
Sleep Center Visit Summary - Patient Visit Information Reason for Visit: 3-month follow-up - Patient Instructions Additional Instructions: You were here for follow up of CPAP therapy. You will be continued on CPAP therapy with pressure at 5-7 cmH2O. Please let us know if the pressure change is uncomfortable and we can make further adjustments of the pressure. You should follow up with sleep care in 12 months. You may contact us sooner for any questions or concerns. - Clinic Information Contact: [facility] [address] [place] [id number] [email or web address] T: [phone]
--- NOTE | 2023-05-31 12:05 | SLEEP CARE CONSULTATION ---
Information from patient questionnaire entered by Geno Watts. I have reviewed and concur with the information entered by Geno Watts. This document represents the service I personally performed and the decisions made by me, Hope Strauss ARNP. History of Present Illness Service Date and Time: 05/31/2023 1115 Previous diagnosis: Very Severe, Obstructive Sleep Apnea-Hypopnea Syndrome AHI: 64.4 (in 2020) Reason for follow up: three month (F/U) Equipment type: CPAP (RESMED Airsense 10, s/u 10/2020) Equipment obtained from: Other ([facility]; getting supplies as needed through [employer]) Mask style: Nasal Backup mask available: Yes Last cushion change: couple months Prior sleep studies: No Year and Where: 2020 - [facility] Type of Sleep Study: Polysomnography (TITRATION F/U COMPLETED 11/23/2022) HPI additional information: RONA RODRIGES was diagnosed to have very severe, AHI 64.4, obstructive sleep apnea-hypopnea syndrome and returned today for CPAP therapy three month follow-u p. Sleep Study - Results Type of Sleep Study: Polysomnography (TITRATION F/U COMPLETED 11/23/2022) Prior sleep studies: No Year and Where: 2020 - [facility] CPAP Compliance Data - Data Reviewed with Patient Average duration of nightly device use: 9 HRS 24 MINS Compliance rate %: 99 (03/01/23-05/26/23) Current pressure setting (cmH2O): 7-8 (avg 7.9) Average residual AHI: 8.4 Central apnea: 5 Obstructive apnea: 0.3 Hypopnea: 3.1 Average large leak: 1 L/min Subjective Patient concerns: denies: aerophagia, mask discomfort, air blowing in eyes, mask leak noise, condensation in mask/hose, nasal congestion, dry mouth, nose, throat, epistaxis Observed to snore while using device: No Current pressure setting perceived as: comfortable On therapy, patient: reports: sleeping better, awakening more refreshed, being more awake and alert during the day, more rested overall. denies: drowsiness while driving Initial [place] Sleepiness Scale score: 18 (in 2020) Current [place] Sleepiness Scale score: 8 Allergies and Home Medications Known drug allergies: No Drug allergies reviewed: Yes Home medication list reviewed: Yes (no changes) Allergy and home medication list: Allergies No Known Drug Allergies Allergy (Verified 05/27/23 14:16) Home Medications Medication Instructions Recorded Confirmed Last Taken Type Aspirin 81 mg PO DAILY 01/24/17 05/31/23 Unknown History Finasteride 5 mg PO DAILY 01/24/17 05/31/23 Unknown History Tamsulosin [Flomax] 0.4 mg PO DAILY 01/24/17 05/31/23 Unknown History Atorvastatin [Lipitor] 20 mg PO QPM 01/10/21 05/31/23 Unknown History Flecainide [Tambocar] 50 mg PO BID 01/10/21 05/31/23 Unknown History dilTIAZem HCL [Diltiazem 24Hr ER 120 mg PO QID 01/10/21 05/31/23 Unknown History (Xr)] Review of Systems Review of systems same as previous: No (Watchman) Physical Exam Vital signs obtained and entered by: HOPE RIVERAP-C Blood Pressure: 120/72 Cuff size: wrist (right) Heart Rate: 52 O2 Saturation: 98 Height: 6 ft 3 in Weight: 250 lb Body Mass Index: 31.2 BMI Classification: Obese Impression and Plan 1. Obstructive Sleep Apnea-Hypopnea Syndrome, very severe, with good treatment compliance and fair apnea control with mildly elevated residual AHI. On CPAP therapy, the patient has better sleep quality and is more rested overall. Patient has significant improvement of his sleep apnea although it is still mildly ineffective. He states he is sleeping well and feels he is getting good results from using the CPAP. He did not notice any changes when we adjusted his pressures last time. He did get slight improvement from the adjustments. He continues to have increased central index at 5. The patients pressure will be changed to autoCPAP 5-7 cmH20 for elevation of residual AHI. Patient advised to contact me if pressure change is uncomfortable so that it can be adjusted. Goals for apnea control discussed. Patient's apnea severity and rationale for treatment to reduce apnea, improve sleep quality and reduce cardiovascular and cerebrovascular events was reviewed. I also reviewed the benefit of consistent device use of CPAP for cardiac disease and arrhythmia. 2. Obesity, unspecified. Currently patients BMI is 31.2. Obesity increases the risk of apnea, CPAP pressure requirements and overall health risks especially cardiovascular and diabetes. Thus patient is advised to lose weight. * Change auto CPAP pressure to 5-7 cmH2O * Notify me if snoring with mask or feeling that the pressure is too much or too little * Attempt to lose weight * Call this office if any problems using CPAP * Return for follow up in 12 months, or sooner if concerns arise Counseling Topics: Spare mask, Weight loss health impact Follow up with Sleep Care in: 1 year Visit Type: In Office Time Spent with Patient (minutes): 21 Provider Statement: I spent 100% of the Face to Face Visit with the patient with greater than 50% spent counseling the patient and coordination of care.
[2023-05-31 12:06] VITALS: BP 120/72; O2SAT 98
== END 2023-05-31 11:16 | disposition home or self-care (01) ==
LOC: SC 11:15
PROVIDERS: ATTEND Nurse Practitioner Family
DX: G47.33 Obstructive sleep apnea (adult) (pediatric) (principal); E66.9 Obesity, unspecified; Z68.31 Body mass index [BMI] 31.0-31.9, adult
CPT/HCPCS: 99213; G0463; 99212

== ENCOUNTER 2023-11-05 13:34 | Emergency (ER) | payer MEDICARE ==
[2023-11-05 14:31] LABS: BASOPHILS % (AUTO) 0.1 %; EOSINOPHILS % (AUTO) 1.1 %; HCT - HEMATOCRIT 38.4 % (42.0-52.0); HGB - HEMOGLOBIN 12.7 g/dL (14.0-18.0); LYMPHOCYTES % (AUTO) 7.4 %; MEAN CORPUSCULAR HEMOGLOBIN 31.1 pg (27.0-31.0); MEAN CORPUSCULAR HGB CONC 33.1 g/dL (32.0-36.0); MEAN CORPUSCULAR VOLUME 94.1 fL (80.0-94.0); MEAN PLATELET VOLUME 9.3 fL (7.4-11.4); MONOCYTES % (AUTO) 26.2 %; NEUTROPHILS % (AUTO) 60.6 %; PLT - PLATELET COUNT 107 10^3/uL (130-450); RED BLOOD COUNT 4.08 10^6/uL (4.70-6.10); RED CELL DISTRIBUTION WIDTH 13.5 % (12.0-15.0)
[2023-11-05 14:47] LABS: ALBUMIN 4.8 g/dL (3.2-5.5); ALBUMIN/GLOBULIN RATIO 2.2 (1.0-2.2); BILIRUBIN,TOTAL 0.6 mg/dL (0.2-1.0); CALCIUM 9.9 mg/dL (8.5-10.3); CREATININE 0.9 mg/dL (0.6-1.3); POTASSIUM 4.2 mmol/L (3.5-4.5)
[2023-11-05 15:00] LABS: ABNORMAL LYMPHS % (MANUAL) 4 %; BAND NEUTROPHILS % (MANUAL) 4 %; EOSINOPHILS # (MANUAL) 0.2 10^3/uL (0-0.7); LYMPHOCYTES # (MANUAL) 0.5 10^3/uL (1.5-3.5); LYMPHOCYTES % (MANUAL) 1 %; METAMYELOCYTES % (MANUAL) 1 %; MONOCYTES # (MANUAL) 1.8 10^3/uL (0.0-1.0); NEUTROPHILS # (MANUAL) 7.4 10^3/uL (1.5-6.6)
[2023-11-05 15:02] LABS: PLATELET ESTIMATE, MANUAL DECREASED (<130,000) (NORMAL); PLATELET MORPHOLOGY NORMAL APPEARANCE (NORMAL); RBC MORPHOLOGY (MULTIPLE) NORMAL APPEARANCE (NORMAL)
[2023-11-05 15:03] LABS: DIFFERENTIAL COMMENT MANUAL DIFFERENTIAL
--- NOTE | 2023-11-05 16:26 | XRAY Report ---
PROCEDURE: Abdomen 1 V INDICATIONS: generalized abdominal pain, constipation TECHNIQUE: One view of the abdomen acquired. COMPARISON: Correlation is made with abdomen pelvis CT, 07/11/2021. FINDINGS: Surgical changes and devices: Right hip arthroplasty hardware is seen. Bowel: Bowel gas pattern is normal. The burden of stool within the colon is not abnormal. Soft tissues: No suspicious abdominal calcifications. Visualized solid organ contours appear normal in size. Bones: No suspicious bony lesions. Age-appropriate degenerative changes are seen. IMPRESSION: No acute abdominal pathology. The burden of stool within the colon is not excessive. Postoperative and degenerative changes are seen. Reviewed by: Riley Vo MD on 11/05/2023 3:25 PM NAOMY Approved by: Riley Vo MD on 11/05/2023 3:25 PM NAOMY Station ID: [id number]
[2023-11-05 16:27] VITALS: O2SAT 100
[2023-11-05] MEDS: SOAP SUDS ENEMA 1 EACH RC ONE (17:27)
--- NOTE | 2023-11-05 18:16 | ED Physician Documentation ---
History of Present Illness - Stated complaint Stated Complaint: GI - Chief complaint Chief Complaint: Abd Pain - History obtained from History obtained from: Patient - History of Present Illness Timing: Prior to arrival Pain level max: 4 Pain level now: 4 - Additonal information Additional information: Patient is a 83-year-old male presenting with abdominal pain constipation patient notes symptoms feel similar to a few years ago when he was here and had fecal disimpaction performed. Patient has history remarkable for coronary artery disease is on aspirin and diltiazem for history of atrial fibrillation as well. He denies any bowel movement for the past 4 days. He denies any fevers nausea vomiting diarrhea. PD PAST MEDICAL HISTORY - Past Medical History Cardiovascular: Hypertension, High cholesterol, Coronary artery disease, MS, Atrial fibrillation Respiratory: None Endocrine/Autoimmune: None GI: None : Benign prostate hypertrophy HEENT: Chronic hearing loss Psych: None Musculoskeletal: Osteoarthritis, Chronic back pain Derm: Other - Past Surgical History Past Surgical History: Yes Ortho: Hip replacement, Knee replacement, Shoulder arthroplasty Cardiovascular: Coronary stent Derm: Skin cancer surgery - Present Medications Home Medications: Ambulatory Orders Medication Instructions Recorded Confirmed Aspirin 81 mg PO DAILY 01/24/17 05/31/23 Finasteride 5 mg PO DAILY 01/24/17 05/31/23 Tamsulosin [Flomax] 0.4 mg PO DAILY 01/24/17 05/31/23 Atorvastatin [Lipitor] 20 mg PO QPM 01/10/21 05/31/23 Flecainide [Tambocar] 50 mg PO BID 01/10/21 05/31/23 dilTIAZem HCL [Diltiazem 24Hr ER 120 mg PO QID 01/10/21 05/31/23 (Xr)] - Allergies Allergies/Adverse Reactions: Allergies Allergy/AdvReac Type Severity Reaction Status Date / Time No Known Drug Allergies Allergy Verified 11/05/23 13:51 - Social History Does the pt smoke?: No Smoking Status: Never smoker Does the pt drink ETOH?: Yes Does the pt have substance abuse?: No - Immunizations Immunizations are current?: No Immunizations: TDAP >10years/unknown - POLST Patient has POLST: No PD ED PE NORMAL - Vitals Vital signs reviewed: Yes - General General: Alert and oriented X 3 - HEENT HEENT: Atraumatic - Neck Neck: Supple, no meningeal sign - Cardiac Cardiac: RRR, No murmur, No gallop, No rub - Respiratory Respiratory: No respiratory distress - Abdomen Abdomen: Normal bowel sounds, Soft (No significant abdominal pain on light palpation of abdomen no rebound no guarding no Rovsing sign no signs of Whiteside's on palpation.), Non tender - Derm Derm: Normal color - Extremities Extremities: No deformity - Neuro Neuro: Alert and oriented X 3 Verbal: Oriented - Psych Psych: Normal mood Results - Vitals Vitals: Vital Signs - 24 hr 11/05/23 11/05/23 13:45 16:00 Temperature 36.1 C L Heart Rate 52 L 51 L Respiratory 18 18 Rate Blood Pressure 140/70 H 146/58 H O2 Saturation 99 100 Oxygen O2 Source Room air - Labs Labs: Laboratory Tests 11/05/23 11/05/23 14:27 14:27 WBC 10.0 RBC 4.08 L Hgb 12.7 L Hct 38.4 L MCV 94.1 H MCH 31.1 H MCHC 33.1 RDW 13.5 Plt Count 107 L MPV 9.3 Neut # (Auto) Not Reportable Lymph # (Auto) Not Reportable [place] # (Auto) Not Reportable Eos # (Auto) Not Reportable Baso # (Auto) Not Reportable Absolute Nucleated RBC Not Reportable Total Counted 100 Band Neuts % (Manual) 4 Abnorm Lymph % (Manual) 4 Metamyelocytes % 1 H Nucleated RBC % Not Reportable Neutrophils # (Manual) 7.4 H Lymphocytes # (Manual) 0.5 L Monocytes # (Manual) 1.8 H Eosinophils # (Manual) 0.2 Basophils # (Manual) 0.0 Differential Comment MANUAL DIFFERENTIAL Platelet Estimate DECREASED (<130,000) Platelet Morphology NORMAL APPEARANCE RBC Morph Micro Appear NORMAL APPEARANCE Sodium 136 Potassium 4.2 Chloride 103 Carbon Dioxide 29 Anion Gap 4.0 L BUN 17 Creatinine 0.9 Estimated GFR (MDRD) 80 L Glucose 91 Calcium 9.9 Total Bilirubin 0.6 AST 21 ALT 18 Alkaline Phosphatase 62 Total Protein 7.0 Albumin 4.8 Globulin 2.2 Albumin/Globulin Ratio 2.2 Lipase 11 Departure - Departure Disposition: 01 Home, Self Care Clinical Impression: Constipation Condition: Good Instructions: Abdominal Pain Follow-Up: Rashida Jara MD [Primary Care Provider] - Comments: You were seen here in the ED for your symptoms of abdominal pain and constipation. Symptoms resolved after having a bowel movement here continue with the MiraLAX and Senokot and magnesium that you have at home to help with your symptoms return to the emergency department with any abdominal pain nausea vomiting fevers or chills.
[2023-11-05 18:45] VITALS: BP 141/83
== END 2023-11-05 18:40 | disposition home or self-care (01) ==
LOC: ED 13:34
DX: K59.00 Constipation, unspecified (principal)
CPT/HCPCS: 36415; 74018; 80053; 83690; 85025; 99283; 99284; A9270

== ENCOUNTER 2024-01-10 07:27 | Outpatient (CLI) | payer MEDICARE | END 2024-01-10 07:28 | disposition home or self-care (01) | LOC: DI 07:27 | PROVIDERS: ATTEND Nurse Practitioner Adult Health | DX: Z53.9 Procedure and treatment not carried out, unspecified reason (principal) ==